=== PATIENT | female | born 1960 | race Caucasian/White ===

== ENCOUNTER → 2016-10-01 | Outpatient (CLI) | payer OTHER ==
[~2016-10-01] MED LIST: ATV/1 PO; CONJ0.453 PO; NARA2.5T2 PO; SERT50TA PO
[2016-10-03 11:08] LABS: QUANTIF TB AG-NIL 0.01 IU/ML; QUANTIFERON NIL 0.02 IU/ML
== END | disposition home or self-care (01) ==
LOC: C.LABSPEC 12:33
PROVIDERS: ATTEND Family Medicine
DX: Z11.1 Encounter for screening for respiratory tuberculosis (principal)

== ENCOUNTER → 2017-02-01 | Outpatient (CLI) | payer OTHER | END | disposition home or self-care (01) | LOC: C.PAPS 09:32 | PROVIDERS: ATTEND Obstetrics & Gynecology | DX: Z01.419 Encounter for gynecological examination (general) (routine) without abnormal findings (principal) ==

== ENCOUNTER → 2017-09-09 | Outpatient (CLI) | payer OTHER ==
--- NOTE | 2017-09-10 14:41 | MAMMOGRAPHY REPORT ---
BILATERAL DIGITAL SCREENING MAMMOGRAM TOMOSYNTHESIS WITH CAD: 09/09/2017 CLINICAL HISTORY: Routine screening. Patient has no complaints. TECHNIQUE: Breast tomosynthesis in addition to standard 2D mammography was performed. Current study was also evaluated with a Computer Aided Detection (CAD) system. COMPARISON: Comparison is made to exams dated: 06/19/2016 mammogram, 06/16/2015 mammogram, 04/20/2014 ma mmogram, 04/09/2013 mammogram - [facility], 08/01/2010 mammogram, and 07/21/2009 abelino mogram. BREAST COMPOSITION: The tissue of both breasts is heterogeneously dense, which may obscure small mas ses. FINDINGS: There is a nodular 8 mm asymmetry seen within the left lateral breast on the cc view, poss ibly projecting superiorly on the MLO view. Additionally, there is a nodular 9 mm asymmetry seen wit hin the right medial breast middle depth on the cc view, not clearly evident on the MLO view. Recomm end spot compression tomosynthesis views and possible breast ultrasound for further evaluation. Remainder of both breasts are stable compared to prior exams, without suspicious masses, calcificatio ns, or areas of architectural distortion noted. IMPRESSION: ACR BI-RADS CATEGORY 0: INCOMPLETE EVALUATION: NEED ADDITIONAL IMAGING EVALUATION Bilateral asymmetries, for which additional imaging evaluation is recommended. The patient will be c alled to schedule an appointment. Approximately 10% of breast cancers are not detected with mammography. A negative mammographic report should not delay biopsy if a clinically suggestive mass is present. Molly Barrett M.D. ah/:09/09/2017 16:18:02 Elevator Repair Mechanic: Syeda GARZA(Jeny)(Nirmal), [facility] letter sent: Addl Imaging 0 BI-RADS Code: ACR BI-RADS Category 0: Incomplete Evaluation: Need Additional Imaging Evaluation
== END | disposition home or self-care (01) ==
LOC: C.MAMM 11:29
PROVIDERS: ATTEND Family Medicine
DX: Z12.31 Encounter for screening mammogram for malignant neoplasm of breast (principal); N64.89 Other specified disorders of breast

== ENCOUNTER → 2017-09-24 | Outpatient (CLI) | payer OTHER ==
--- NOTE | 2017-09-24 12:57 | MAMMOGRAPHY REPORT ---
BILATERAL DIGITAL DIAGNOSTIC MAMMOGRAM TOMOSYNTHESIS AND TARGETED BILATERAL ULTRASOUND: 09/24/2017 CLINICAL HISTORY: 57-year-old woman called back from screening mammography for a nodular asymmetry in the left lateral breast and right medial breast. TECHNIQUE: Spot compression CC and MLO tomosynthesis images of each breast were obtained. COMPARISON: Comparison is made to exams dated: 09/09/2017 mammogram, 06/19/2016 mammogram, 06/16/2015 m ammogram, 04/20/2014 mammogram, 04/09/2013 mammogram - [facility], and 08/01/2010 mamm ogram. BREAST COMPOSITION: There are scattered areas of fibroglandular density in both breasts. FINDINGS: The spot compression tomosynthesis views of the the right breast demonstrate partial effac ement of the nodular asymmetry which is located in the approximate 12:00 to 1:00 middle one third of the breast. There is no focal area of architectural distortion or microcalcification. Further evalu ation with ultrasound was performed. The spot compression views of the left breast demonstrate parti al effacement of the 8 mm nodular asymmetry seen on screening mammography. There is possible persist ent nodularity in the middle one third of the left breast seen on cc tomosynthesis slice 25/62, for w hich further evaluation with ultrasound was performed in the lateral left breast. Targeted ultrasound was performed in both breasts, with particular attention to the lateral left ken st and 12:00 to 1:00, retroareolar and slightly medial right breast. In the left 3:00 axis, 2 cm fro m the nipple, there is an oval parallel circumscribed anechoic benign simple cyst measuring 4.1 x 1.7 mm. There is a grouping of cysts with internal nonvascular debris in the 2:30 left breast, 3 cm fro m the nipple, measuring approximately 5.9 x 2.8 x 10.5 mm. Another similar-appearing possible cluste r of cysts is identified in the 2:00 left breast, 6 cm from the nipple, measuring 9.4 x 3.9 x 7.5 mm. A circumscribed parallel orientated mixed isoechoic and anechoic solid versus cystic mass in the 1: 00 left breast, 5 cm from the nipple measuring 5.4 x 2.8 x 7.7 mm and another small grouping of cysts with hypoechoic, anechoic and isoechoic internal debris in the 12:00 periareolar left breast measuri ng approximately 2.5 x 8.1 mm in conglomerate. No definite suspicious solid masses seen throughout t he left breast on targeted ultrasound. In the right 12:00 periareolar breast there is a mixed isoechoic and anechoic solid versus cystic mas s, similar in appearance to the mass identified in the 1:00 left breast, measuring 4.9 x 2.6 x 5.4 mm . There is an isoechoic solid mass versus conspicuous fat lobule in the 4:00 right breast, 1 cm from the nipple that is likely incidentally identified, measuring 4.3 x 5.0 x 4.0 mm. However given the conspicuous nature and indistinct versus microlobulated margins this lesion warrants definitive killian cterization with an ultrasound-guided core needle biopsy. No other discrete solid or cystic mass is seen in the 12:00, retroareolar, 6:00 or slightly medial right breast on targeted ultrasound. IMPRESSION: ACR BI-RADS CATEGORY 4: SUSPICIOUS, TARGETED ULTRASOUND ACR BI-RADS CATEGORY 4: SUSPICIO US 1. Ultrasound guided core needle biopsy is recommended for an indeterminate 5 mm isoechoic solid mas s versus conspicuous fat lobule in the 4:00 right breast, 1 cm from the nipple. Correlation with pos t procedure mammography is recommended, as it is unclear if this could correlate with the initial nod ular mammographic asymmetry. 2. Pending benign pathology results, recommend follow-up bilateral diagnostic tomosynthesis mammogra ms and repeat targeted ultrasound in each breast to reassess the benign-appearing cyst clusters and s olid versus cystic masses, as described above. These results and recommendations were discussed with the patient at the time of the exam. She tenta tively scheduled the right breast core biopsy and six-month follow-up appointment prior to leaving ou r department. Approximately 10% of breast cancers are not detected with mammography. A negative mammographic report should not delay biopsy if a clinically suggestive mass is present. Estefanía Marie M.D. ay/:09/24/2017 12:40:25 Lining Layer: Michelle Greene, [facility] letter sent: Abnormal 4/5 BI-RADS Code: ACR BI-RADS Category 4: Suspicious Ultrasound BI-RADS: ACR BI-RADS Category 4: Suspici ous
== END | disposition home or self-care (01) ==
LOC: C.MAMM 09:49
PROVIDERS: ATTEND Family Medicine
DX: R92.8 Other abnormal and inconclusive findings on diagnostic imaging of breast (principal); N64.89 Other specified disorders of breast

== ENCOUNTER → 2017-10-08 | Outpatient (CLI) | payer OTHER ==
--- NOTE | 2017-10-08 13:22 | Discharge Instructions ---
Discharge Instructions Procedure Procedure Date: Oct 08, 2017. Reason for visit: Right Mass. Discharge Discharge Date: Oct 08, 2017. Discharge Diagnosis: post right breast ultrasound guided core biopsy Instructions Activity Recommendations: Additional Limitations (see below) Return to School/Work: no limitations Recommended Home Diet: No Limitations Provider Instructions: ACTIVITY RECOMMENDATIONS: * No lifting, pushing, pulling or exercising the affected side for three days. RETURN TO SCHOOL/WORK: * You may return to work/school after the procedure, but do not perform any strenuous activities for 24 to 48 hours. MEDICATIONS: * Tylenol (two 325 mg) every four to six hours if needed for mild pain (if not allergic to Tylenol). DIET: * Resume previous diet. SPECIAL CARE INSTRUCTIONS: * Keep biopsy site dry for 24 hours. May shower after 24 hours, but do not soak (bathe) incision. * May remove Tegaderm (plastic patch) tomorrow AFTER showering. * Leave the steri-strips on for one week. Allow the steri-strips to fall off by themselves. If not off after one week, you may remove them. You may place a Bandaid crosswise over the strips, if desired. * Apply ice 10 minutes on and 10 minutes off as needed. * Wear a bra at bedtime to sleep more comfortably for 2-3 days. * Your referring physician should have the results after approximately 5 to 7 business days. * Call for unusual bleeding, fever, drainage, etc or if you have any questions call [phone] during normal business hours or after hours call Dr Marie, . FOLLOW UP VISIT: Follow-up with Referring Physician as scheduled. Allergies Coded Allergies: No Known Allergies (Unverified , 08/09/15) Nicolasa Talavera Recommendations: Call your doctor if: * Temperature above 101 degrees * Pain not relieved by pain medicine ordered * There is increased drainage or redness from any incision * You have any unanswered questions or concerns. Your Doctors Instructions noted above were prepared by provider Estefanía Marie. Patient Signature Section: Patient Instructions Signature Page Zoe Keane Patient (or Guardian) Signature/Date: I have read and understand the instructions given to me by my caregivers. Caregiver/RN/Doctor Signature/Date: The above-named patient and/or guardian has received patient instructions on this date. + Original Patient Signature Page (only) stays with chart. Please make copy for patient.
--- NOTE | 2017-10-08 15:15 | MAMMOGRAPHY REPORT ---
THIS REPORT HAS BEEN AMENDED. ULTRASOUND GUIDED BIOPSY RIGHT BREAST: 10/08/2017 CLINICAL HISTORY: 57-year-old woman presents for biopsy of an incidentally identified on circumscribe d isoechoic 5 mm mass in the 4:00 right breast. COMPARISON: Comparison is made to exams dated: 09/24/2017 mammogram, 09/24/2017 ultrasound, 09/09/2017 mammogram, 06/19/2016 mammogram, 06/16/2015 mammogram, and 04/20/2014 mammogram - [facility] [place]. PATIENT CONSENT: The procedure, risks and benefits were discussed with the patient and informed conse nt was obtained both verbally and in writing. Specific risks to this procedure include: bleeding, in fection, puncture of adjacent structure, nontarget biopsy, sampling error, pain, metal allergy and me dication reaction. PROCEDURE DESCRIPTION: A time out was performed and the right breast was agreed as the site of biopsy . The skin was prepped and draped in the usual sterile fashion. The non-circumscribed somewhat irregu lar isoechoic 5 mm mass in the 4:00 right breast was chosen as the target for biopsy. Subcutaneous an d intraparenchymal 1% buffered lidocaine, with and without epinephrine, was administered as local ane sthesia. A skin incision was made. Through the incision, 6 samples were taken with a 14 gauge Achiev e biopsy device. A ribbon shaped metallic marker was placed at the biopsy site. Hemostasis was achiev ed after manual compression. The patient tolerated the procedure well and there was no immediate comp lication. The samples were sent to the pathology department in an appropriately labeled container. Postprocedure right CC and ML tomosynthesis images were obtained. There is a new ribbon-shaped biops y marker clip in the 4:00 anterior right breast, at the site of the biopsied isoechoic mass identifie d on ultrasound. The biopsy marker clip does not align with the initial nodular mammographic asymmet ry in question. As per prior recommendations, pending benign pathology results would recommend close follow-up bilateral diagnostic mammograms and possible ultrasound in 6 months to ensure stability. IMPRESSION: ULTRASOUND GUIDED BIOPSY Status post ultrasound guided core biopsy of a 5 mm isoechoic mass in the 4:00 right breast, with bio psy marker placed at the site. Pending benign pathology results, recommend follow-up bilateral diagnostic tomosynthesis mammograms a nd possible ultrasound to ensure stability of other nodular asymmetries in each breast. Estefanía Marie M.D. ay/:10/08/2017 14:57:38 Surface Ship Usw Supervisor: Michelle Greene, [facility] AMENDMENT: 10/16/2017 Estefanía Marie M.D. Pathology results from the ultrasound-guided core biopsy of an isoechoic angular mass in the 4:00 rig ht breast yielded fibrocystic change. No tumor seen. Pathology results are concordant with the imag ing appearance. As per prior diagnostic mammogram and ultrasound recommendations, a six-month follow -up is recommended in both breasts, to ensure stability of bilateral asymmetries, which did not corre late with the biopsied lesion in the right breast.
--- NOTE | 2017-10-08 15:16 | MAMMOGRAPHY REPORT ---
UNILATERAL RIGHT DIGITAL DIAGNOSTIC MAMMOGRAM TOMOSYNTHESIS: 10/08/2017 CLINICAL HISTORY: Status post ultrasound guided core biopsy of an isoechoic 4 mm mass in the 4:00 rig ht breast. Please refer to the report from right breast ultrasound guided core biopsy performed at the same time for full detail. IMPRESSION: POST PROCEDURE IMAGING FOR MARKER PLACEMENT Please refer to the report from right breast ultrasound guided core biopsy performed at the same time for full detail. Approximately 10% of breast cancers are not detected with mammography. A negative mammographic report should not delay biopsy if a clinically suggestive mass is present. Estefanía Marie M.D. ay/:10/08/2017 13:21:06 Urban Planning Professor: Michelle Greene, [facility] BI-RADS Code: Post Procedure Imaging For Marker Placement
== END | disposition home or self-care (01) ==
LOC: C.MAMM 12:42
PROVIDERS: ATTEND Family Medicine
DX: N63.10 Unspecified lump in the right breast, unspecified quadrant (principal)

== ENCOUNTER 2023-07-08 21:10 | Inpatient (IN) ==
[2023-07-08 22:19] LABS: Basophils # (auto) 0.01 K/uL (0.00-0.20); Basophils % (auto) 0.2 %; Eosinophils # (auto) 0.17 K/uL (0.00-0.50); Eosinophils % (auto) 2.7 %; Hematocrit (blood only) 45.2 % (37.0-47.0); Hemoglobin 15.2 g/dl (12.0-16.0); Immature Granulocytes # (auto) 0.02 K/uL (0.01-0.20); Immature Granulocytes % (auto) 0.3 %; Lymphocytes # (auto) 1.33 K/uL (1.20-3.40); Mean Corpuscular Hgb Conc 33.6 g/dL (32.0-36.0); Mean Corpuscular Volume 92.2 fL (80.0-100.0); Mean Platelet Volume 11.2 fL (9.4-12.4); Monocytes # (auto) 0.46 K/uL (0.11-0.59); Monocytes % (auto) 7.3 %; Neutrophils # (auto) 4.35 K/uL (1.40-6.50); Neutrophils % (auto) 68.5 %; Platelet Count 227 K/uL (130-400); RDW Coefficient of Variation 13.6 % (11.5-14.5); RDW Standard Deviation 46.2 fL (36.4-46.3); White Blood Count 6.34 K/ul (4.8-10.8)
[2023-07-08 22:40] LABS: Albumin Level 4.4 gm/dl (3.4-5.0); Bilirubin,Total 0.4 mg/dl (0.2-1.0)
[2023-07-08 22:46] LABS: Albumin Globulin Ratio 1.7 (0.9-2); BUN Creatinine Ratio 21.1 (10-20); Creatinine Clr Calc Pharmacy 68.5 ml/min; Est GFR (African American) 74.9 ml/min; Est GFR (Non-African American) 64.6 ml/min; Globulin 2.6 gm/dl (2.5-4.0)
[2023-07-08] MEDS ORDERED: Heparin IV Adult Wt-Based Standard w/ INITIAL Bolus Protocol IV STA (23:39)
[2023-07-08] MEDS ORDERED: NITROGLYCERIN SL 0.4 MG/TAB TAB SL STA (23:39)
[2023-07-08] MEDS ORDERED: HEPARIN SODIUM/DEXTROSE 25,000 UNITS/500 ML BAG IV SCH (23:45)
[2023-07-08] MEDS ORDERED: HEPARIN SOD (PORCINE) 1000 UNIT/ML IV ONE ×2 (23:45→23:55)
[2023-07-09 00:15] LABS: Partial Thromboplastin Ratio 0.8; Partial Thromboplastin Time 22.7 Seconds (21.0-31.0)
[2023-07-09] MEDS ORDERED: ACETAMINOPHEN 1,000 MG/100 ML VIAL IV STA (02:16)
[2023-07-09] MEDS ORDERED: LABETALOL HCL IV 5 MG/ML 20ML IV STA (02:19)
[2023-07-09] MEDS ORDERED: FAMOTIDINE 20MG IV PUSH 20 MG/5 ML SYR IV STA (02:22)
--- NOTE | 2023-07-09 03:25 | History & Physical Report ---
Date of Service July 09, 2023 Assessment & Plan (1) NSTEMI (non-ST elevated myocardial infarction): Plan: 63-year-old female with past medical significant for migraines presents with chest pain and elevated blood pressure and found to have non-ST elevated PR Non-ST elevated PR Chest pain going on and off for last 2 weeks Initial troponin 1225 and repeat is 1540 Started IV heparin and aspirin and statin Lopressor 12.5 p.o. twice daily Nitropaste Follow serial cardiac enzymes and echocardiogram n.p.o. Monitor in telemetry Cardiology consult Elevated blood pressure Placed on Nitropaste Lopressor 12.5 po twice daily Will closely monitor Migraines IV Tylenol as needed for now DVT prophylaxis On IV heparin Disposition Telemetry floor Full code History of Present Illness Chief Complaint: Chest pain Primary Care Provider: Colin Quezada DO 63-year-old female with past medical significant for migraines presents with chest pain and elevated blood pressure. Patient states since last 2 weeks she is on and off lower chest and epigastric pain comes on its own. Was feeling fatigue and also dizzy. Yesterday pain was more constant feeling tight in the chest and also tenderness in the epigastric region which prompted her to come to the ER. And there when she came her systolic blood pressure was in 190s and her symptoms and blood pressure improved with nitro. Currently resting comfortably and hemodynamically stable. Denies any shortness of breath. Says she thinks she gets migraine headaches and she takes naratriptan with ibuprofen. Cough. No fevers. No nausea. No sweating. Normal bladder and bowel movements. Denies any blood in the stools or black stools. Denies hematuria. Past medical history as mentioned above Past surgical history. Left knee arthroscopy. Bilateral total. Knee arthroplasty Social history. No smoking. Alcohol social drinking. No drug use. Family history. Mother had coronary disease. Thyroid disease. Father had liver cancer. Sister has cancer. Allergies Allergy/AdvReac Type Severity Reaction Status Date / Time Penicillins Allergy Unknown Verified 07/08/23 23:34 Home Medications Medication Instructions Recorded Confirmed Type betamethasone valerate 0.12 % 1 applic topical DAILY 07/08/23 07/08/23 History topical foam celecoxib 200 mg capsule 200 mg PO QAM 07/08/23 07/08/23 History clobetasol 0.05 % scalp solution 1 applic topical BID 07/08/23 07/08/23 History conj estrogen-medroxyprogesterone 1 tab PO DAILY 07/08/23 07/08/23 History 0.3 mg-1.5 mg tablet (Prempro) naratriptan 2.5 mg tablet 2.5 mg PO DAILY PRN Headache 07/08/23 07/08/23 History olopatadine 0.1 % eye drops 1 drp OPB BID 07/08/23 07/08/23 History Past Med/Surg History Medical History Deep vein thrombosis (DVT) lower extremity 2009 after knee surgery Depression Migraines Surgical History S/P colonoscopy H/O induced surgically S/P knee surgery S/P breast biopsy percutaneous needle core- right breast, benign 2017 Family History Father Liver cancer Family/Other Migraine headache Sister Thyroid disease Uterine cancer Mother Thyroid disease Denies family history of Ovarian cancer Breast cancer Colorectal cancer Social History Smoking Status: Never smoker Do You Dip or Chew Tobacco: No; Hx Alcohol Use: No Hx Substance Use: No Preferred Language: Nepali Buckle Sewer Required: No Beliefs That Will Affect Care: None marital status: Current Living Situation: Alone current occupational status: employed current occupation: [employer] Other Information That Helps Us Care for You: No Feels Safe at Home: Yes Safety Concerns: Feels Safe At This Time Assistive Devices: None Review of Systems Review of Systems: All systems reviewed & are unremarkable except as noted in HPI & below Physical Exam Physical Exam: General- Not in distress Head- atraumatic Eyes- PERRL. ENT- oropharynx clear Neck- supple, no JVD. Lungs- clear to auscultation, No wheezing or crackles. Heart- regular rhythm; no murmur, no gallop. Abdomen- normal bowel sounds, soft, nontender, no distension. Extremities- no pretibial edema, no erythema. Neuro- alert, oriented x 3; PERRL, no facial palsy; no dysarthria; moves extremities. Skin- warm & dry Results & Data Results & Data Vital Signs (Past 12 Hours) Vital Signs Pulse Pulse Resp BP BP Pulse Ox O2 Del Method 07/09/23 02:45 71 162/105 H 07/09/23 01:00 78 18 184/97 H 96 Room Air 07/09/23 00:00 90 20 157/87 H 96 07/08/23 23:50 84 23 98 07/08/23 23:40 83 20 07/08/23 23:30 187/114 H 07/08/23 23:30 86 22 100 07/08/23 23:23 182/115 H 07/08/23 23:23 81 19 100 07/08/23 23:20 121 H 19 99 07/08/23 23:10 87 13 100 07/08/23 23:04 86 20 99 07/08/23 23:04 88 16 99 Room Air 07/08/23 23:03 196/114 H 07/08/23 23:00 88 18 196/114 H 100 Room Air 07/08/23 21:18 90 18 181/108 H 97 Room Air Diagnostic Findings Laboratory Results WBC 7.23 K/ul (4.8-10.8) 07/09/23 06:23 RBC 4.73 M/uL (4.20-5.40) 07/09/23 06:23 Hgb 14.8 g/dl (12.0-16.0) 07/09/23 06:23 Hct 42.5 % (37.0-47.0) 07/09/23 06:23 MCV 89.9 fL (80.0-100.0) 07/09/23 06:23 MCH 31.3 pg (25.0-34.0) 07/09/23 06:23 MCHC 34.8 g/dL (32.0-36.0) 07/09/23 06:23 RDW Std Deviation 44.0 fL (36.4-46.3) 07/09/23 06:23 RDW Coeff of Ángel 13.3 % (11.5-14.5) 07/09/23 06:23 Plt Count 238 K/uL (130-400) 07/09/23 06:23 MPV 10.4 fL (9.4-12.4) 07/09/23 06:23 Immature Gran % (Auto) 0.3 % 07/09/23 06: Neut % (Auto) 75.8 % 07/09/23 06:23 Lymph % (Auto) 17.4 % 07/09/23 06:23 [place] % (Auto) 5.7 % 07/09/23 06:23 Eos % (Auto) 0.8 % 07/09/23 06:23 Baso % (Auto) 0.0 % 07/09/23 06: Neut # (Auto) 5.48 K/uL (1.40-6.50) 07/09/23 06:23 Lymph # (Auto) 1.26 K/uL (1.20-3.40) 07/09/23 06:23 [place] # (Auto) 0.41 K/uL (0.11-0.59) 07/09/23 06:23 Eos # (Auto) 0.06 K/uL (0.00-0.50) 07/09/23 06:23 Baso # (Auto) 0.00 K/uL (0.00-0.20) 07/09/23 06:23 Immature Gran # (Auto) 0.02 K/uL (0.01-0.20) 07/09/23 06:23 APTT 22.7 Seconds (21.0-31.0) 07/08/23 21: PTT Ratio 0.8 07/08/23 21:28 Sodium 142 mmol/L (136-145) 07/09/23 06:23 Potassium 4.1 mmol/L (3.5-5.1) 07/09/23 06:23 Chloride 109 mmol/L (98-107) H 07/09/23 06:23 Carbon Dioxide 22 mmol/L (21-32) 07/09/23 06:23 Anion Gap 11 (3-11) 07/09/23 06:23 BUN 13 mg/dl (6-23) 07/09/23 06:23 Creatinine 0.77 mg/dl (0.6-1.2) 07/09/23 06:23 Est Cr Clr Drug Dosing 84.3 ml/min 07/09/23 06:23 Est GFR ( Amer) 96.6 ml/min 07/09/23 06:23 Est GFR (Non-Af Amer) 83.3 ml/min 07/09/23 06:23 BUN/Creatinine Ratio 16.9 (10-20) 07/09/23 06:23 Glucose 110 mg/dl (70-99(Fasting)) H 07/09/23 06:23 Calcium 8.7 mg/dl (8.6-10.3) 07/09/23 06:23 Magnesium 2.1 mg/dl (1.7-2.4) 07/09/23 06:23 Total Bilirubin 0.4 mg/dl (0.2-1.0) 07/08/23 21:29 AST 28 U/L (13-39) 07/08/23 21:29 ALT 27 U/L (7-52) 07/08/23 21:29 Alkaline Phosphatase 54 U/L (34-104) 07/08/23 21:29 Troponin I High Sens 3841.6 pg/ml (0-14) H* D 07/09/23 06:23 Total Protein 7.0 gm/dl (6.0-8.3) 07/08/23 21:29 Albumin 4.4 gm/dl (3.4-5.0) 07/08/23 21:29 Globulin 2.6 gm/dl (2.5-4.0) 07/08/23 21:29 Albumin/Globulin Ratio 1.7 (0.9-2) 07/08/23 21:29 Lipase 24 U/L (11-82) 07/08/23 21:29 Impressions Chest X-Ray 07/08/23 21:22 XR chest 1V portable CLINICAL HISTORY: Chest pain, nonspecific. COMPARISON STUDY: No previous studies for comparison. FINDINGS: Lung volumes are normal. Lungs are clear. There is no pneumothorax or pleural effusion. Cardiac size is normal. Mediastinal contours are normal. There is no evidence for pulmonary edema. IMPRESSION: No acute cardiopulmonary findings. ACT 112: Negative or not required by law. Electronically signed by: Genaro Dueñas M.D. 07/09/2023 6:58 AM ECG Additional Comments: ECG. Normal sinus rhythm with rate of 89. No acute ST elevation seen
[2023-07-09] MEDS ORDERED: ASPIRIN CHEW 324 MG PO STA (03:29)
[2023-07-09] MEDS: NITROGLYCERIN 2% OINTMENT 30GM TUBE EXT SCH ×4 (04:16→21:33)
[2023-07-09] MEDS ORDERED: NITROGLYCERIN SL 0.4 MG/TAB TAB SL PRN (04:54)
[2023-07-09] MEDS ORDERED: POLYETHYLENE (MIRALAX) 17 GM PACK PO PRN (04:54)
[2023-07-09 06:43] LABS: Eosinophils # (auto) 0.06 K/uL (0.00-0.50); Eosinophils % (auto) 0.8 %; Hematocrit (blood only) 42.5 % (37.0-47.0); Hemoglobin 14.8 g/dl (12.0-16.0); Immature Granulocytes # (auto) 0.02 K/uL (0.01-0.20); Immature Granulocytes % (auto) 0.3 %; Lymphocytes # (auto) 1.26 K/uL (1.20-3.40); Lymphocytes % (auto) 17.4 %; Mean Corpuscular Hemoglobin 31.3 pg (25.0-34.0); Mean Corpuscular Hgb Conc 34.8 g/dL (32.0-36.0); Mean Corpuscular Volume 89.9 fL (80.0-100.0); Mean Platelet Volume 10.4 fL (9.4-12.4); Monocytes # (auto) 0.41 K/uL (0.11-0.59); Monocytes % (auto) 5.7 %; Neutrophils # (auto) 5.48 K/uL (1.40-6.50); Neutrophils % (auto) 75.8 %; Platelet Count 238 K/uL (130-400); RDW Coefficient of Variation 13.3 % (11.5-14.5); Red Blood Count 4.73 M/uL (4.20-5.40); White Blood Count 7.23 K/ul (4.8-10.8)
--- NOTE | 2023-07-09 06:59 | XRay Report ---
XR chest 1V portable CLINICAL HISTORY: Chest pain, nonspecific. COMPARISON STUDY: No previous studies for comparison. FINDINGS: Lung volumes are normal. Lungs are clear. There is no pneumothorax or pleural effusion. Car diac size is normal. Mediastinal contours are normal. There is no evidence for pulmonary edema. IMPRESSION: No acute cardiopulmonary findings. ACT 112: Negative or not required by law. Electronically signed by: Genaro Dueñas M.D. 07/09/2023 6:58 AM
[2023-07-09 07:00] LABS: BUN Creatinine Ratio 16.9 (10-20); Calcium 8.7 mg/dl (8.6-10.3); Creatinine Clr Calc Pharmacy 84.3 ml/min; Est GFR (African American) 96.6 ml/min; Est GFR (Non-African American) 83.3 ml/min; Magnesium 2.1 mg/dl (1.7-2.4); Potassium 4.1 mmol/L (3.5-5.1)
[2023-07-09 07:28] LABS: Partial Thromboplastin Ratio 2.1
--- NOTE | 2023-07-09 07:53 | Emergency Department Note ---
Impression & Plan Acute non-ST elevation myocardial infarction (NSTEMI) Admit to the [facility] ED Provider Note NAME: KAHLIL BRICENO AGE: 63 SEX: Female INFORMANT: Patient and her son ED PROVIDER(S): Carmelina Escobar DO CHIEF COMPLAINT: Epigastric discomfort and chest pressure PLAN: Disposition: Admit to the [facility] MEDICAL DECISION MAKING: This is a 63-year-old female patient who presents to the emergency department with intermittent epigastric and chest discomfort over the past couple of days. The discomfort became more intense over the past 24 hours. EKG was unremarkable but the patient had an elevated troponin. Repeat troponin was even higher(>1500.) Patient's chest discomfort was relieved with sublingual nitroglycerin. Patient has a strong family history of cardiac disease. Her mother and grandmother both had heart disease and hypertension. Patient was treated with oral aspirin and bolused with IV heparin and placed on a heparin drip. Blood pressure came down nicely after the sublingual nitro. She remained hemodynamically stable. I discussed the case with the [facility]. 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 Vital Signs: reviewed and remarkable for hypertension Additional History obtained from: The patient's son who is at the bedside Chronic Medical/Social Conditions affecting care: Untreated hypertension Differential Diagnosis: Hypertensive crisis; GERD; STEMI; NSTEMI; costochondritis Diagnostics, independently interpreted by me: ECG: Normal sinus rhythm at a rate of [address] segment elevation or signs of ischemia. There is no ectopy. Cardiac Monitoring: Normal sinus rhythm at a rate of 84 Imaging studies: Portable chest x-ray: No acute cardiomegaly or pulmonary infiltrates or opacities as per my independent interpretation HPI: 63 year old Female arrives for evaluation of epigastric pain and chest pressure. Patient has been having intermittent episodes of chest discomfort, shortness of breath and epigastric pain over the past 2 weeks. Her symptoms became more intense over the past 24 hours. Patient has a history of intermittent hypertension which has been untreated. Patient states that her mother and grandmother both have a history of cardiac disease and hypertension. PAST MEDICAL HISTORY: See Below, arthritis, the patient takes Prempro SOCIAL HISTORY: See Below, HOME MEDICATIONS: See list ALLERGIES: Penicillin VITALS: See Below PHYSICAL EXAMINATION: HEENT: Head - normocephalic and atraumatic. Pupils are equal, round, and reactive to light. Extraocular eye muscles are intact, and sclera are anicteric. Nose - moist nasal mucosa without discharge. Mouth - moist buccal mucosa. Oropharynx is nonerythematous and there is no tonsillar exudate or edema noted. Neck: Supple; no JVD, nuchal rigidity, cervical lymphadenopathy, or auscultated bruits. Heart: Regular rate and rhythm. There is a normal S1 and S2 with no murmurs, clicks, or gallops appreciated. Lungs: Clear to auscultation bilaterally with no wheezes, rales, or rhonchi. Abdomen: Soft, completely nontender, nondistended, with good bowel sounds. There are no palpable pulsatile masses or hepatosplenomegaly. There is no guarding, rigidity, or rebound noted. Extremities: No evidence of cyanosis, clubbing, or edema. There are easily palpable peripheral pulses. Skin: warm and dry with good turgor and no rashes. CRITICAL CARE: I have personally spent greater than 30 minutes of critical care time in the direct management of this patient. This includes bedside care, interpretation of diagnostic studies, and testing, discussion with consultants, patient, and family members, and other required patient management activities. This 30 minutes is in excess of all separately billable procedures. 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 A complete history and physical was performed. An order was placed for continuous cardiac monitoring. The patient was in a normal sinus rhythm at a rate of 84. A portable chest x- ray was performed. I discussed the case with the patient's daughter and son-in-law on the phone. I reviewed results of laboratory studies and x-ray with the patient and her son. I explained that she would require admission to the hospital. Past Med/Surg History Medical History Deep vein thrombosis (DVT) lower extremity 2009 after knee surgery Depression Migraines Surgical History S/P colonoscopy H/O induced surgically S/P knee surgery S/P breast biopsy percutaneous needle core- right breast, benign 2018 Family History Father Liver cancer Family/Other Migraine headache Sister Thyroid disease Uterine cancer Mother Thyroid disease Denies family history of Ovarian cancer Breast cancer Colorectal cancer Social History Smoking Status: Never smoker Do You Dip or Chew Tobacco: No; Hx Alcohol Use: No Hx Substance Use: No Preferred Language: Estonian Communication Ability: Effective 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: No Beliefs That Will Affect Care: None marital status: Current Living Situation: Alone current occupational status: employed current occupation: [employer] Other Information That Helps Us Care for You: No Feels Safe at Home: Yes Safety Concerns: Feels Safe At This Time Assistive Devices: None Allergies Allergies Allergy/AdvReac Type Severity Reaction Status Date / Time Penicillins Allergy Unknown Verified 07/08/23 23:34 Home Meds Home Medications Medication Instructions Recorded Confirmed betamethasone valerate 0.12 % 1 applic topical DAILY 07/08/23 07/08/23 topical foam celecoxib 200 mg capsule 200 mg PO QAM 07/08/23 07/08/23 clobetasol 0.05 % scalp solution 1 applic topical BID 07/08/23 07/08/23 conj estrogen-medroxyprogesterone 1 tab PO DAILY 07/08/23 07/08/23 0.3 mg-1.5 mg tablet (Prempro) naratriptan 2.5 mg tablet 2.5 mg PO DAILY PRN Headache 07/08/23 07/08/23 olopatadine 0.1 % eye drops 1 drp OPB BID 07/08/23 07/08/23 Results & Data (ED) Vital Signs Vital Signs - 24 hr 07/08/23 21:18 07/08/23 23:00 07/08/23 23:03 Pulse Rate 90 Pulse Rate [Apical] 88 Pulse Rate from SpO2 Sensor Pulse Rhythm Regular Pulse Rhythm [Apical] Regular Pulse Strength [Apical] Normal Respiratory Rate 18 18 Respiratory Effort / Characteristics Non-Labored Non-Labored Spontaneous Respiratory Depth Normal Normal Respiratory Pattern Regular Blood Pressure 181/108 H 196/114 H Blood Pressure [Right Arm] 196/114 H Blood Pressure Mean 132 154 Blood Pressure Mean [Right Arm] 141 Blood Pressure Position [Right Arm] Pulse Oximetry 97 100 Oxygen Delivery Method Room Air Room Air Sepsis Recent Fever Within 48 Hours No Sepsis New/Unexplained Change in Mental Status N/A Sepsis Action Taken by Nursing No Action Required 07/08/23 23:04 07/08/23 23:04 07/08/23 23:10 Pulse Rate 88 86 87 Pulse Rate [Apical] Pulse Rate from SpO2 Sensor 87 87 Pulse Rhythm Regular Pulse Rhythm [Apical] Pulse Strength [Apical] Respiratory Rate 16 20 13 Respiratory Effort / Characteristics Respiratory Depth Respiratory Pattern Blood Pressure Blood Pressure [Right Arm] Blood Pressure Mean Blood Pressure Mean [Right Arm] Blood Pressure Position [Right Arm] Pulse Oximetry 99 99 100 Oxygen Delivery Method Room Air Sepsis Recent Fever Within 48 Hours Sepsis New/Unexplained Change in Mental Status Sepsis Action Taken by Nursing 07/08/23 23:20 07/08/23 23:23 07/08/23 23:23 Pulse Rate 121 H 81 Pulse Rate [Apical] Pulse Rate from SpO2 Sensor 85 81 Pulse Rhythm Pulse Rhythm [Apical] Pulse Strength [Apical] Respiratory Rate 19 19 Respiratory Effort / Characteristics Respiratory Depth Respiratory Pattern Blood Pressure 182/115 H Blood Pressure [Right Arm] Blood Pressure Mean 141 Blood Pressure Mean [Right Arm] Blood Pressure Position [Right Arm] Pulse Oximetry 99 100 Oxygen Delivery Method Sepsis Recent Fever Within 48 Hours Sepsis New/Unexplained Change in Mental Status Sepsis Action Taken by Nursing 07/08/23 23:30 07/08/23 23:30 07/08/23 23:40 Pulse Rate 86 83 Pulse Rate [Apical] Pulse Rate from SpO2 Sensor 87 Pulse Rhythm Pulse Rhythm [Apical] Pulse Strength [Apical] Respiratory Rate 22 20 Respiratory Effort / Characteristics Respiratory Depth Respiratory Pattern Blood Pressure 187/114 H Blood Pressure [Right Arm] Blood Pressure Mean 162 Blood Pressure Mean [Right Arm] Blood Pressure Position [Right Arm] Pulse Oximetry 100 Oxygen Delivery Method Sepsis Recent Fever Within 48 Hours Sepsis New/Unexplained Change in Mental Status Sepsis Action Taken by Nursing 07/08/23 23:50 07/09/23 00:00 07/09/23 00:00 Pulse Rate 84 90 Pulse Rate [Apical] Pulse Rate from SpO2 Sensor 81 89 Pulse Rhythm Pulse Rhythm [Apical] Pulse Strength [Apical] Respiratory Rate 23 20 Respiratory Effort / Characteristics Respiratory Depth Respiratory Pattern Blood Pressure 157/87 H 157/87 H Blood Pressure [Right Arm] Blood Pressure Mean 110 105 Blood Pressure Mean [Right Arm] Blood Pressure Position [Right Arm] Pulse Oximetry 98 96 Oxygen Delivery Method Sepsis Recent Fever Within 48 Hours Sepsis New/Unexplained Change in Mental Status Sepsis Action Taken by Nursing 07/09/23 00:10 07/09/23 00:20 07/09/23 00:30 Pulse Rate 72 76 80 Pulse Rate [Apical] Pulse Rate from SpO2 Sensor 73 76 79 Pulse Rhythm Pulse Rhythm [Apical] Pulse Strength [Apical] Respiratory Rate 17 17 19 Respiratory Effort / Characteristics Respiratory Depth Respiratory Pattern Blood Pressure Blood Pressure [Right Arm] Blood Pressure Mean Blood Pressure Mean [Right Arm] Blood Pressure Position [Right Arm] Pulse Oximetry 96 96 96 Oxygen Delivery Method Sepsis Recent Fever Within 48 Hours Sepsis New/Unexplained Change in Mental Status Sepsis Action Taken by Nursing 07/09/23 00:30 07/09/23 00:40 07/09/23 00:50 Pulse Rate 76 86 Pulse Rate [Apical] Pulse Rate from SpO2 Sensor 76 84 Pulse Rhythm Pulse Rhythm [Apical] Pulse Strength [Apical] Respiratory Rate 22 17 Respiratory Effort / Characteristics Respiratory Depth Respiratory Pattern Blood Pressure 126/99 Blood Pressure [Right Arm] Blood Pressure Mean 102 Blood Pressure Mean [Right Arm] Blood Pressure Position [Right Arm] Pulse Oximetry 96 96 Oxygen Delivery Method Sepsis Recent Fever Within 48 Hours Sepsis New/Unexplained Change in Mental Status Sepsis Action Taken by Nursing 07/09/23 01:00 07/09/23 01:00 07/09/23 01:00 Pulse Rate 78 Pulse Rate [Apical] 78 Pulse Rate from SpO2 Sensor 79 Pulse Rhythm Pulse Rhythm [Apical] Regular Pulse Strength [Apical] Normal Respiratory Rate 18 22 Respiratory Effort / Characteristics Non-Labored Spontaneous Respiratory Depth Normal Respiratory Pattern Regular Blood Pressure 172/100 H Blood Pressure [Right Arm] 184/97 H Blood Pressure Mean 113 Blood Pressure Mean [Right Arm] 126 Blood Pressure Position [Right Arm] Lying Pulse Oximetry 96 95 Oxygen Delivery Method Room Air Sepsis Recent Fever Within 48 Hours Sepsis New/Unexplained Change in Mental Status Sepsis Action Taken by Nursing 07/09/23 01:10 07/09/23 01:20 07/09/23 01:24 Pulse Rate 75 78 88 Pulse Rate [Apical] Pulse Rate from SpO2 Sensor 77 77 78 Pulse Rhythm Pulse Rhythm [Apical] Pulse Strength [Apical] Respiratory Rate 17 21 15 Respiratory Effort / Characteristics Respiratory Depth Respiratory Pattern Blood Pressure Blood Pressure [Right Arm] Blood Pressure Mean Blood Pressure Mean [Right Arm] Blood Pressure Position [Right Arm] Pulse Oximetry 98 97 96 Oxygen Delivery Method Sepsis Recent Fever Within 48 Hours Sepsis New/Unexplained Change in Mental Status Sepsis Action Taken by Nursing 07/09/23 01:31 07/09/23 01:32 07/09/23 01:40 Pulse Rate Pulse Rate [Apical] Pulse Rate from SpO2 Sensor 76 81 Pulse Rhythm Pulse Rhythm [Apical] Pulse Strength [Apical] Respiratory Rate Respiratory Effort / Characteristics Respiratory Depth Respiratory Pattern Blood Pressure 184/97 H Blood Pressure [Right Arm] Blood Pressure Mean 145 Blood Pressure Mean [Right Arm] Blood Pressure Position [Right Arm] Pulse Oximetry 96 96 Oxygen Delivery Method Sepsis Recent Fever Within 48 Hours Sepsis New/Unexplained Change in Mental Status Sepsis Action Taken by Nursing 07/09/23 01:50 07/09/23 02:00 07/09/23 02:00 Pulse Rate Pulse Rate [Apical] Pulse Rate from SpO2 Sensor 75 86 Pulse Rhythm Pulse Rhythm [Apical] Pulse Strength [Apical] Respiratory Rate Respiratory Effort / Characteristics Respiratory Depth Respiratory Pattern Blood Pressure 162/105 H Blood Pressure [Right Arm] Blood Pressure Mean 120 Blood Pressure Mean [Right Arm] Blood Pressure Position [Right Arm] Pulse Oximetry 95 95 Oxygen Delivery Method Sepsis Recent Fever Within 48 Hours Sepsis New/Unexplained Change in Mental Status Sepsis Action Taken by Nursing 07/09/23 02:10 07/09/23 02:20 07/09/23 02:30 Pulse Rate 82 Pulse Rate [Apical] Pulse Rate from SpO2 Sensor 83 81 82 Pulse Rhythm Pulse Rhythm [Apical] Pulse Strength [Apical] Respiratory Rate 13 Respiratory Effort / Characteristics Respiratory Depth Respiratory Pattern Blood Pressure Blood Pressure [Right Arm] Blood Pressure Mean Blood Pressure Mean [Right Arm] Blood Pressure Position [Right Arm] Pulse Oximetry 97 98 98 Oxygen Delivery Method Sepsis Recent Fever Within 48 Hours Sepsis New/Unexplained Change in Mental Status Sepsis Action Taken by Nursing 07/09/23 02:40 07/09/23 02:45 07/09/23 02:49 Pulse Rate 72 71 74 Pulse Rate [Apical] Pulse Rate from SpO2 Sensor 73 74 Pulse Rhythm Pulse Rhythm [Apical] Pulse Strength [Apical] Respiratory Rate 17 12 Respiratory Effort / Characteristics Respiratory Depth Respiratory Pattern Blood Pressure 162/105 H Blood Pressure [Right Arm] Blood Pressure Mean Blood Pressure Mean [Right Arm] Blood Pressure Position [Right Arm] Pulse Oximetry 97 97 Oxygen Delivery Method Sepsis Recent Fever Within 48 Hours Sepsis New/Unexplained Change in Mental Status Sepsis Action Taken by Nursing 07/09/23 02:49 07/09/23 02:50 07/09/23 03:00 Pulse Rate 69 70 Pulse Rate [Apical] Pulse Rate from SpO2 Sensor 71 Pulse Rhythm Pulse Rhythm [Apical] Pulse Strength [Apical] Respiratory Rate 18 Respiratory Effort / Characteristics Respiratory Depth Respiratory Pattern Blood Pressure 164/108 H 166/105 H Blood Pressure [Right Arm] Blood Pressure Mean 134 Blood Pressure Mean [Right Arm] Blood Pressure Position [Right Arm] Pulse Oximetry 96 Oxygen Delivery Method Sepsis Recent Fever Within 48 Hours Sepsis New/Unexplained Change in Mental Status Sepsis Action Taken by Nursing 07/09/23 03:00 07/09/23 03:06 07/09/23 03:08 Pulse Rate 72 70 80 Pulse Rate [Apical] Pulse Rate from SpO2 Sensor 73 79 Pulse Rhythm Pulse Rhythm [Apical] Pulse Strength [Apical] Respiratory Rate 18 16 Respiratory Effort / Characteristics Respiratory Depth Respiratory Pattern Blood Pressure Blood Pressure [Right Arm] Blood Pressure Mean Blood Pressure Mean [Right Arm] Blood Pressure Position [Right Arm] Pulse Oximetry 96 96 Oxygen Delivery Method Sepsis Recent Fever Within 48 Hours Sepsis New/Unexplained Change in Mental Status Sepsis Action Taken by Nursing Laboratory Data 07/10/23 07:32 07/10/23 05:40 Lab Results 07/08/23 07/08/23 07/08/23 Range/Units 21:28 21:29 23:48 WBC 6.34 (4.8-10.8) K/ul RBC 4.90 (4.20-5.40) M/uL Hgb 15.2 (12.0-16.0) g/dl Hct 45.2 (37.0-47.0) % MCV 92.2 (80.0-100.0) fL MCH 31.0 (25.0-34.0) pg MCHC 33.6 (32.0-36.0) g/dL RDW Std Deviation 46.2 (36.4-46.3) fL RDW Coeff of Ángel 13.6 (11.5-14.5) % Plt Count 227 (130-400) K/uL MPV 11.2 (9.4-12.4) fL Immature Gran % (Auto) 0.3 % Neut % (Auto) 68.5 % Lymph % (Auto) 21.0 % [place] % (Auto) 7.3 % Eos % (Auto) 2.7 % Baso % (Auto) 0.2 % Neut # (Auto) 4.35 (1.40-6.50) K/uL Lymph # (Auto) 1.33 (1.20-3.40) K/uL [place] # (Auto) 0.46 (0.11-0.59) K/uL Eos # (Auto) 0.17 (0.00-0.50) K/uL Baso # (Auto) 0.01 (0.00-0.20) K/uL Immature Gran # (Auto) 0.02 (0.01-0.20) K/uL APTT 22.7 (21.0-31.0) Seconds PTT Ratio 0.8 Sodium 140 (136-145) mmol/L Potassium 4.0 (3.5-5.1) mmol/L Chloride 108 H (98-107) mmol/L Carbon Dioxide 22 (21-32) mmol/L Anion Gap 10 (3-11) BUN 20 (6-23) mg/dl Creatinine 0.95 (0.6-1.2) mg/dl Est Cr Clr Drug Dosing 68.5 ml/min Est GFR ( Amer) 74.9 ml/min Est GFR (Non-Af Amer) 64.6 ml/min BUN/Creatinine Ratio 21.1 H (10-20) Glucose 97 (70-99(Fasting)) mg/dl Calcium 9.0 (8.6-10.3) mg/dl Total Bilirubin 0.4 (0.2-1.0) mg/dl AST 28 (13-39) U/L ALT 27 (7-52) U/L Alkaline Phosphatase 54 (34-104) U/L Troponin I High Sens 1225.0 H* 1540.5 H* D (0-14) pg/ml Total Protein 7.0 (6.0-8.3) gm/dl Albumin 4.4 (3.4-5.0) gm/dl Globulin 2.6 (2.5-4.0) gm/dl Albumin/Globulin Ratio 1.7 (0.9-2) Lipase 24 (11-82) U/L Administered Medications Aspirin (Aspirin 81 Mg Ectab) 81 mg PO [facility] Stop: 08/08/23 08:59 Last Admin: 07/10/23 09:43 Dose: 81 mg Documented By: Admin: 07/09/23 10:30 Dose: 81 mg Documented By: SOFIE Atorvastatin Calcium (Atorvastatin 40 Mg Tab) 80 mg PO QAM [facility] Stop: 08/08/23 08:59 Last Admin: 07/10/23 09:43 Dose: 80 mg Documented By: Admin: 07/09/23 11:01 Dose: 80 mg Documented By: SOFIE Acetaminophen (Ofirmev) 1,000 mg in 100 mls @ 400 mls/hr IV Q8H PRN PRN Reason: Pain or Fever Stop: 07/12/23 04:53 Last Infusion: 07/10/23 06:27 Dose: Infused [place] [facility] [place]: 07/10/23 05:37 Dose: 400 mls/hr Documented By: Infusion: 07/09/23 20:11 Dose: Infused [place]ed [place] [facility] [place]: 07/09/23 19:43 Dose: 400 mls/hr Documented By: CHARLY Metoprolol Tartrate (Metoprolol Tartrate 25 Mg Tab) 12.5 mg PO BID [facility] Stop: 08/08/23 08:59 Last Admin: 07/10/23 09:43 Dose: 12.5 mg Documented By: Admin: 07/09/23 21:03 Dose: 12.5 mg [place]ed [place]: [facility] [place]: 07/09/23 10:30 Dose: 12.5 mg Documented By: SOFIE Miscellaneous (Order Awaiting Action: Olopatadine 0.1 % Drops) 1 each N/A QS [facility] Stop: 08/08/23 07:59 Last Admin: 07/10/23 08:24 Dose: Not Given Documented By: Admin: 07/10/23 00:03 Dose: Not Given Documented By: Admin: 07/09/23 17:43 Dose: Not Given Documented By: [facility] Admin: 07/09/23 07:59 Dose: Not Given Documented By: SOFIE Ticagrelor (Ticagrelor 90 Mg Tab) 90 mg PO BID TADEO Stop: 08/09/23 08:59 Last Admin: 07/10/23 09:43 Dose: 90 mg Documented By: RAJANI Discontinued Medications Aspirin (Aspirin Chew 324 Mg) 324 mg PO NOW STA Stop: 07/09/23 03:30 Last Admin: 07/09/23 04:15 Dose: 324 mg Documented By: SUDHAKAR Fentanyl Citrate (Fentanyl Citrate Pf 100 Mcg/2 Ml Vial) Confirm Administered Dose 100 mcg .ROUTE .STK-MED ONE Stop: 07/09/23 13:48 Last Increment: 07/09/23 15:50 Dose: 50 mcg Documented By: TREVER Heparin Sodium (Porcine) (Heparin Sod (Porcine) 1000 Unit/Ml) 6,000 units IV NOW ONE Stop: 07/08/23 23:46 Last Admin: 07/09/23 00:18 Dose: 6,000 units Documented By: SUDHAKAR Co-signed By: JOHANA Heparin Sodium (Porcine) (Heparin (Porcine) 1000 Unit/Ml 10 Ml (Information Technology Internship Use Only)) Confirm Administered Dose 10,000 units .ROUTE .STK-MED ONE Stop: 07/09/23 13:48 Last Admin: 07/09/23 15:51 Dose: 9,000 units Documented By: TREVER Heparin Sodium/Sodium Chloride (Heparin In Nss Infusion 1000 Unit/500 Ml (2 U/Ml) Bag) Confirm Administered Dose 3,000 units IV .STK-MED ONE Stop: 07/09/23 13:49 Last Admin: 07/09/23 15:52 Dose: 3,000 units Documented By: TREVER Heparin Sodium/Dextrose (Heparin Sodium/Dextrose) 25,000 units in 500 mls @ 25 mls/hr IV .Q20H TADEO; Protocol Stop: 08/07/23 23:44 Last Titration: 07/09/23 17:19 Dose: Infused Documented By: ALISSON Co-signed By: Admin: 07/09/23 00:17 Dose: 1,250 units/hr, 25 mls/hr Documented By: SUDHAKAR Co-signed By: JOHANA Acetaminophen (Ofirmev) 1,000 mg in 100 mls @ 400 mls/hr IV NOW STA Stop: 07/09/23 02:30 Last Infusion: 07/09/23 02:42 Dose: Infused Documented By: Admin: 07/09/23 02:27 Dose: 400 mls/hr Documented By: SUDHAKAR Famotidine (Pepcid 20mg Iv Push) 20 mg in 5 mls @ 2.5 mls/min IV NOW STA Stop: 07/09/23 02:23 Last Admin: 07/09/23 02:27 Dose: 2.5 mls/min Documented By: SUDHAKAR Ioversol (Optiray 350) Confirm Administered Dose 1 ml .ROUTE .STK-MED ONE Stop: 07/09/23 13:51 Last Admin: 07/09/23 15:53 Dose: 1 ml Documented By: TREVER Labetalol HCl (Labetalol Hcl Iv 5 Mg/Ml 20ml) 5 mg IV NOW STA Stop: 07/09/23 02:20 Last Admin: 07/09/23 02:45 Dose: 5 mg Documented By: SUDHAKAR Co-signed By: JOHANA Midazolam HCl (Midazolam Hcl 1 Mg/Ml 2ml Vial) Confirm Administered Dose 2 mg .ROUTE .STK-MED ONE Stop: 07/09/23 13:48 Last Admin: 07/09/23 15:51 Dose: 3 mg Documented By: TREVER Midazolam HCl (Midazolam Hcl 1 Mg/Ml 2ml Vial) Confirm Administered Dose 2 mg .ROUTE .STK-MED ONE Stop: 07/09/23 15:10 Last Admin: 07/09/23 15:57 Dose: Not Given Documented By: TREVER Nicardipine HCl (Nicardipine Hcl Inj 2.5 Mg/Ml 10 Ml Amp) Confirm Administered Dose 25 mg .ROUTE .STK-MED ONE Stop: 07/09/23 13:48 Last Admin: 07/09/23 15:52 Dose: 25 mg Documented By: TREVER Nitroglycerin (Nitroglycerin Sl 0.4 Mg/Tab Tab) 0.4 mg SL NOW STA Stop: 07/08/23 23:40 Last Admin: 07/08/23 23:53 Dose: 0.4 mg Documented By: SUDHAKAR Nitroglycerin (Nitroglycerin 2% Ointment 30gm Tube) 0.5 inch EXT Q6H [facility] Stop: 08/08/23 03:29 Last Admin: 07/10/23 04:07 Dose: Not Given Documented By: Admin: 07/09/23 21:33 Dose: 0.5 inch Documented By: Admin: 07/09/23 17:41 Dose: Not Given Documented By: Admin: 07/09/23 10:36 Dose: 0.5 inch Documented By: Admin: 07/09/23 04:16 Dose: 0.5 inch Documented By: SUDHKAAR Nitroglycerin/Dextrose (Nitroglycerin/D5w 100mcg/Ml 20ml Syr) Confirm Administered Dose 2,000 mcg .ROUTE .STK-MED ONE Stop: 07/09/23 13:49 Last Admin: 07/09/23 15:52 Dose: 2,000 mcg Documented By: TREVER Oxycodone HCl (Oxycodone Hcl Ir 5 Mg Tab (Immediate Release)) 5 mg PO NOW STA Stop: 07/10/23 01:34 Last Admin: 07/10/23 01:37 Dose: 5 mg Documented By: CHARLY Oxycodone HCl (Oxycodone Hcl Ir 5 Mg Tab (Immediate Release)) 7.5 mg PO NOW STA Stop: 07/10/23 06:21 Last Admin: 07/10/23 06:35 Dose: 7.5 mg Documented By: CHARLY Ticagrelor (Ticagrelor 90 Mg Tab) Confirm Administered Dose 180 mg .ROUTE .STK- MED ONE Stop: 07/09/23 15:44 Last Admin: 07/09/23 15:57 Dose: 180 mg Documented By: TREVER Imaging Data Radiologist's Impression: Chest X-Ray 07/08/23 21:22 XR chest 1V portable CLINICAL HISTORY: Chest pain, nonspecific. COMPARISON STUDY: No previous studies for comparison. FINDINGS: Lung volumes are normal. Lungs are clear. There is no pneumothorax or pleural effusion. Cardiac size is normal. Mediastinal contours are normal. There is no evidence for pulmonary edema. IMPRESSION: No acute cardiopulmonary findings. ACT 112: Negative or not required by law. Electronically signed by: Genaro Dueñas M.D. 07/09/2023 6:58 AM Discharge Plan Visit Data Chief Complaint: Chest Pain Stated Complaint: CHEST PRESSURE ED Provider: Carmelina Escobar Discharge Problem: Acute non-ST elevation myocardial infarction (NSTEMI) Patient Disposition: Admitted As Inpatient Discharge Instructions Interventions: ED Discharge Assessment Last Done: 07/09/23 04:53
[2023-07-09 08:38] LABS: Chol HDL Ratio 3.6 (0-5)
[2023-07-09] MEDS: METOPROLOL TARTRATE 25 MG TAB PO SCH ×2 (10:30→21:03)
[2023-07-09] MEDS: ASPIRIN 81 MG ECTAB PO SCH (10:30)
[2023-07-09] MEDS: ATORVASTATIN 40 MG TAB PO SCH (11:01)
--- NOTE | 2023-07-09 13:19 | Cardiology Consultation ---
Date of Consultation July 09, 2023 Assessment & Plan (1) Acute non-ST elevation myocardial infarction (NSTEMI): (2) Dyslipidemia, goal LDL below 70: (3) HTN (hypertension): Plan 63-year-old female admitted with NSTEMI. Echocardiogram demonstrating lateral and basal posterior hypokinesis suggesting most likely left circumflex territory ischemic heart disease. Recommend cardiac catheterization. Risk, benefits, and alternatives to procedure discussed at length. Patient agreeable to proceed. Continue IV heparin, aspirin, beta-rodri, and high intensity statin therapy. Further recommendations pending result of cardiac catheterization. History of Present Illness Reason for Consultation: NSTEMI Requesting Physician: Dr. Beltre Attending Physician: Rafa Zheng MD History of Present Illness 63-year-old female presents the emergency department with intermittent chest discomfort over the past 5 days. On the day of admission, she experienced episode of severe, substernal chest pressure and squeezing. Discomfort 9 out of 10 at its worst. She came to the ER for further evaluation and treatment. Pain-free after sublingual nitroglycerin. Currently treated with topical nitrates, beta-rodri, aspirin, statin, and IV heparin. Pain-free at this time. Denies orthopnea, PND, or lower extremity edema. No palpitations, lightheadedness, dizziness, syncope, or near syncope. Denies personal history of coronary disease, congestive heart failure, or rheumatic fever as a child. Allergies Allergy/AdvReac Type Severity Reaction Status Date / Time Penicillins Allergy Unknown Verified 07/08/23 23:34 Home Medications Medication Instructions Recorded Confirmed Type betamethasone valerate 0.12 % 1 applic topical DAILY 07/08/23 07/08/23 History topical foam celecoxib 200 mg capsule 200 mg PO QAM 07/08/23 07/08/23 History clobetasol 0.05 % scalp solution 1 applic topical BID 07/08/23 07/08/23 History conj estrogen-medroxyprogesterone 1 tab PO DAILY 07/08/23 07/08/23 History 0.3 mg-1.5 mg tablet (Prempro) naratriptan 2.5 mg tablet 2.5 mg PO DAILY PRN Headache 07/08/23 07/08/23 History olopatadine 0.1 % eye drops 1 drp OPB BID 07/08/23 07/08/23 History Patient History Medical History Deep vein thrombosis (DVT) lower extremity 2010 after knee surgery Depression Migraines Surgical History S/P colonoscopy H/O induced surgically S/P knee surgery S/P breast biopsy percutaneous needle core- right breast, benign 2018 Family History Father Liver cancer Family/Other Migraine headache Sister Thyroid disease Uterine cancer Mother Thyroid disease Denies family history of Ovarian cancer Breast cancer Colorectal cancer Social History Smoking Status: Never smoker Do You Dip or Chew Tobacco: No; Hx Alcohol Use: No Hx Substance Use: No Preferred Language: Portuguese 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 Beliefs That Will Affect Care: None marital status: Current Living Situation: Alone current occupational status: employed current occupation: [employer] Other Information That Helps Us Care for You: No Feels Safe at Home: Yes Safety Concerns: Feels Safe At This Time Assistive Devices: None Review of Systems Review of Systems: All systems reviewed & are unremarkable except as noted in Subjective Physical Exam Constitutional: well nourished; no acute distress and not ill appearing Respiratory: no respiratory distress, no labored breathing and no retractions Auscultation: no crackles, no rales, no rhonchi and no wheezes Cardiovascular: Rate/Rhythm: regular rate and regular rhythm Heart Sounds: normal S1 and normal S2; no murmur Vessels: femoral pulses present and radial pulses present; no JVD Extremities: no edema Gastrointestinal (Abdomen): Inspection/Auscultation: normal bowel sounds; abdomen not distended Percussion/Palpation: abdomen soft; abdomen nontender, no guarding and abdomen not rigid Neurologic: CN's II-XI intact bilaterally and moves all extremities; no focal motor deficits Results & Data Vital Signs (Past 12 Hours) Vital Signs Temp Pulse Pulse Resp BP BP Pulse Ox 07/09/23 08:56 78 07/09/23 05:57 161/104 H 07/09/23 05:52 36.9 C 84 14 172/108 H 96 07/09/23 05:30 73 19 93 07/09/23 05:30 151/100 H 07/09/23 05:26 71 16 155/96 H 94 07/09/23 05:26 07/09/23 05:20 72 22 93 07/09/23 05:10 82 21 94 07/09/23 05:00 69 19 93 07/09/23 05:00 155/96 H 07/09/23 04:50 69 19 93 07/09/23 04:40 71 20 93 07/09/23 04:30 172/109 H 07/09/23 04:30 78 19 95 07/09/23 04:20 82 17 97 07/09/23 04:10 71 18 95 07/09/23 04:00 166/115 H 07/09/23 04:00 67 19 94 07/09/23 03:50 74 18 96 07/09/23 03:40 73 19 94 07/09/23 03:32 71 18 96 07/09/23 03:31 166/105 H 07/09/23 03:08 80 16 96 07/09/23 03:06 70 07/09/23 03:00 72 18 96 07/09/23 03:00 70 166/105 H 07/09/23 02:50 69 18 96 07/09/23 02:49 164/108 H 07/09/23 02:49 74 12 97 07/09/23 02:45 71 162/105 H 07/09/23 02:40 72 17 97 07/09/23 02:30 82 13 98 07/09/23 02:20 98 07/09/23 02:10 97 07/09/23 02:00 162/105 H 07/09/23 02:00 95 07/09/23 01:50 95 07/09/23 01:40 96 07/09/23 01:32 96 07/09/23 01:31 184/97 H 07/09/23 01:24 88 15 96 07/09/23 01:20 78 21 97 Pulse Ox O2 Del Method O2 Del Method 07/09/23 08:56 07/09/23 05:57 07/09/23 05:52 Room Air 07/09/23 05:30 07/09/23 05:30 07/09/23 05:26 Room Air 07/09/23 05:26 93 Room Air 07/09/23 05:20 07/09/23 05:10 07/09/23 05:00 07/09/23 05:00 07/09/23 04:50 07/09/23 04:40 07/09/23 04:30 07/09/23 04:30 07/09/23 04:20 07/09/23 04:10 07/09/23 04:00 07/09/23 04:00 07/09/23 03:50 07/09/23 03:40 07/09/23 03:32 07/09/23 03:31 07/09/23 03:08 07/09/23 03:06 07/09/23 03:00 07/09/23 03:00 07/09/23 02:50 07/09/23 02:49 07/09/23 02:49 07/09/23 02:45 07/09/23 02:40 07/09/23 02:30 07/09/23 02:20 07/09/23 02:10 07/09/23 02:00 07/09/23 02:00 07/09/23 01:50 07/09/23 01:40 07/09/23 01:32 07/09/23 01:31 07/09/23 01:24 07/09/23 01:20 Laboratory Results Cardiac Enzymes 07/08/23 07/08/23 07/09/23 Range/Units 21:29 23:48 06:23 AST 28 (13-39) U/L Troponin I High Sens 1225.0 H* 1540.5 H* D 3841.6 H* D (0-14) pg/ml 07/09/23 Range/Units 11:15 AST (13-39) U/L Troponin I High Sens 4978.3 H* D (0-14) pg/ml Coagulation 07/08/23 07/09/23 Range/Units 21:28 06:23 APTT 22.7 58.0 H* (21.0-31.0) Seconds Lipids 07/09/23 Range/Units 06:23 Triglycerides 148 (0-150) mg/dl Cholesterol 211 H (0-200) mg/dl HDL Cholesterol 58 mg/dl Cholesterol/HDL Ratio 3.6 (0-5) CBC 07/08/23 07/09/23 Range/Units 21:29 06:23 WBC 6.34 7.23 (4.8-10.8) K/ul RBC 4.90 4.73 (4.20-5.40) M/uL Hgb 15.2 14.8 (12.0-16.0) g/dl Hct 45.2 42.5 (37.0-47.0) % Plt Count 227 238 (130-400) K/uL Neut # (Auto) 4.35 5.48 (1.40-6.50) K/uL Lymph # (Auto) 1.33 1.26 (1.20-3.40) K/uL Knott # (Auto) 0.46 0.41 (0.11-0.59) K/uL Eos # (Auto) 0.17 0.06 (0.00-0.50) K/uL Baso # (Auto) 0.01 0.00 (0.00-0.20) K/uL Comprehensive Metabolic Panel 07/08/23 07/09/23 Range/Units 21:29 06:23 Sodium 140 142 (136-145) mmol/L Potassium 4.0 4.1 (3.5-5.1) mmol/L Chloride 108 H 109 H (98-107) mmol/L Carbon Dioxide 22 22 (21-32) mmol/L BUN 20 13 (6-23) mg/dl Creatinine 0.95 0.77 (0.6-1.2) mg/dl Glucose 97 110 H (70-99(Fasting)) mg/dl Calcium 9.0 8.7 (8.6-10.3) mg/dl AST 28 (13-39) U/L ALT 27 (7-52) U/L Alkaline Phosphatase 54 (34-104) U/L Total Protein 7.0 (6.0-8.3) gm/dl Albumin 4.4 (3.4-5.0) gm/dl Intake and Output 07/08/23 07/09/23 07/09/23 22:59 06:59 14:59 Intake Total 100 / 100 Balance 100 / 100 Intake: IV 100 / 100 Acetaminophen 1,000 mg In 100 100 / 100 ml @ 400 mls/hr IV NOW STA Rx#: [id number] Other: Weight 85.5 kg 85 kg Weight Measurement Method Chair Scale Built in [facility] (3) HTN (hypertension) Hypertension type: primary hypertension Qualified Code(s): I10 - Essential (primary) hypertension
[2023-07-09] MEDS ORDERED: MIDAZOLAM HCL 1 MG/ML 2ML VIAL ONE ×2 (13:47→15:09)
[2023-07-09] MEDS ORDERED: HEPARIN (PORCINE) 1000 UNIT/ML 10 ML (CATH LAB USE ONLY) ONE (13:47)
[2023-07-09] MEDS ORDERED: niCARdipine HCL INJ 2.5 MG/ML 10 ML AMP ONE (13:47)
[2023-07-09] MEDS ORDERED: fentaNYL citrate PF 100 MCG/2 ML VIAL ONE (13:47)
[2023-07-09] MEDS ORDERED: NITROGLYCERIN/D5W 100MCG/ML 20ML SYR ONE (13:48)
[2023-07-09] MEDS ORDERED: OPTIRAY 350 ONE (13:50)
--- NOTE | 2023-07-09 13:51 | Electrocardiogram Report ---
Test Reason : Blood Pressure : / mmHG Vent. Rate : 083 BPM Atrial Rate : 083 BPM P-R Int : 164 ms QRS Dur : 086 ms QT Int : 394 ms P-R-T Axes : 031 006 049 degrees QTc Int : 462 ms Normal sinus rhythm Normal ECG When compared with ECG of 08-JUL-2023 21:27, (unconfirmed) Minimal criteria for Anterior infarct are no longer Present Nonspecific T wave abnormality no longer evident in Inferior leads T wave inversion less evident in Anterior leads Confirmed by Yonathan Schneider ([id number]) on 07/09/2023 1:50:48 PM Referred By: REFERRED SELF Confirmed By:Zaheer Schneider
--- NOTE | 2023-07-09 14:01 | Electrocardiogram Report ---
Test Reason : Blood Pressure : / mmHG Vent. Rate : 089 BPM Atrial Rate : 089 BPM P-R Int : 162 ms QRS Dur : 086 ms QT Int : 382 ms P-R-T Axes : 019 -01 021 degrees QTc Int : 464 ms Normal sinus rhythm Nonspecific ST abnormality Abnormal ECG No previous ECGs available Confirmed by Yonathan Schneider ([id number]) on 07/09/2023 2:00:44 PM Referred By: REFERRED SELF Confirmed By:Zaheer Schneider
--- NOTE | 2023-07-09 14:11 | Pre Anesthesia Assessment ---
Date of Service July 09, 2023 Pre Sedation Assessment Vital Signs Temp Pulse Pulse Resp BP BP BP 07/09/23 16:47 69 153/97 H 07/09/23 16:24 36.6 C 65 154/93 H 07/09/23 16:05 65 18 127/90 07/09/23 15:50 65 18 151/89 H 07/09/23 13:40 80 18 143/91 H 07/09/23 08:56 78 07/09/23 05:57 161/104 H 07/09/23 05:52 36.9 C 84 14 172/108 H 07/09/23 05:30 73 19 07/09/23 05:30 151/100 H 07/09/23 05:26 71 16 155/96 H 07/09/23 05:26 07/09/23 05:20 72 22 07/09/23 05:10 82 21 07/09/23 05:00 69 19 07/09/23 05:00 155/96 H 07/09/23 04:50 69 19 07/09/23 04:40 71 20 07/09/23 04:30 172/109 H 07/09/23 04:30 78 19 07/09/23 04:20 82 17 07/09/23 04:10 71 18 07/09/23 04:00 166/115 H 07/09/23 04:00 67 19 07/09/23 03:50 74 18 07/09/23 03:40 73 19 07/09/23 03:32 71 18 07/09/23 03:31 166/105 H 07/09/23 03:08 80 16 07/09/23 03:06 70 07/09/23 03:00 72 18 07/09/23 03:00 70 166/105 H 07/09/23 02:50 69 18 07/09/23 02:49 164/108 H 07/09/23 02:49 74 12 07/09/23 02:45 71 162/105 H 07/09/23 02:40 72 17 07/09/23 02:30 82 13 07/09/23 02:20 07/09/23 02:10 07/09/23 02:00 162/105 H 07/09/23 02:00 07/09/23 01:50 07/09/23 01:40 07/09/23 01:32 07/09/23 01:31 184/97 H 07/09/23 01:24 88 15 07/09/23 01:20 78 21 07/09/23 01:10 75 17 07/09/23 01:00 78 22 07/09/23 01:00 172/100 H 07/09/23 01:00 78 18 184/97 H 07/09/23 00:50 86 17 07/09/23 00:40 76 22 07/09/23 00:30 126/99 07/09/23 00:30 80 19 07/09/23 00:20 76 17 07/09/23 00:10 72 17 07/09/23 00:00 157/87 H 07/09/23 00:00 90 20 157/87 H 07/08/23 23:50 84 23 07/08/23 23:40 83 20 07/08/23 23:30 187/114 H 07/08/23 23:30 86 22 07/08/23 23:23 182/115 H 07/08/23 23:23 81 19 07/08/23 23:20 121 H 19 07/08/23 23:10 87 13 07/08/23 23:04 86 20 07/08/23 23:04 88 16 07/08/23 23:03 196/114 H 07/08/23 23:00 88 18 196/114 H 07/08/23 21:18 90 18 181/108 H Pulse Ox Pulse Ox O2 Del Method O2 Del Method 07/09/23 16:47 95 Room Air 07/09/23 16:24 94 Room Air 07/09/23 16:05 95 Room Air 07/09/23 15:50 95 Room Air 07/09/23 13:40 96 Room Air 07/09/23 08:56 07/09/23 05:57 07/09/23 05:52 96 Room Air 07/09/23 05:30 93 07/09/23 05:30 07/09/23 05:26 94 Room Air 07/09/23 05:26 93 Room Air 07/09/23 05:20 93 07/09/23 05:10 94 07/09/23 05:00 93 07/09/23 05:00 07/09/23 04:50 93 07/09/23 04:40 93 07/09/23 04:30 07/09/23 04:30 95 07/09/23 04:20 97 07/09/23 04:10 95 07/09/23 04:00 07/09/23 04:00 94 07/09/23 03:50 96 07/09/23 03:40 94 07/09/23 03:32 96 07/09/23 03:31 07/09/23 03:08 96 07/09/23 03:06 07/09/23 03:00 96 07/09/23 03:00 07/09/23 02:50 96 07/09/23 02:49 07/09/23 02:49 97 07/09/23 02:45 07/09/23 02:40 97 07/09/23 02:30 98 07/09/23 02:20 98 07/09/23 02:10 97 07/09/23 02:00 07/09/23 02:00 95 07/09/23 01:50 95 07/09/23 01:40 96 07/09/23 01:32 96 07/09/23 01:31 07/09/23 01:24 96 07/09/23 01:20 97 07/09/23 01:10 98 07/09/23 01:00 95 07/09/23 01:00 07/09/23 01:00 96 Room Air 07/09/23 00:50 96 07/09/23 00:40 96 07/09/23 00:30 07/09/23 00:30 96 07/09/23 00:20 96 07/09/23 00:10 96 07/09/23 00:00 07/09/23 00:00 96 07/08/23 23:50 98 07/08/23 23:40 07/08/23 23:30 07/08/23 23:30 100 07/08/23 23:23 07/08/23 23:23 100 07/08/23 23:20 99 07/08/23 23:10 100 07/08/23 23:04 99 07/08/23 23:04 99 Room Air 07/08/23 23:03 07/08/23 23:00 100 Room Air 07/08/23 21:18 97 Room Air Cardiovascular + regular rate and + regular rhythm + S1 normal and + S2 normal; no murmur + femoral pulses present and + radial pulses present; no JVD and no carotid bruit no edema Respiratory + respiratory effort normal; no respiratory distress, no labored breathing and no retractions no crackles, no rales, no rhonchi and no wheezes Pre-Sedation Airway Assessment Smoking Status: Never smoker Hx Sleep Apnea: No Short, Thick Neck: No Thyromental Distance: > or= 3.5 Finger Breadths Oral Cavity: + WNL Mallampati Class: II ASA: ASA3 NPO Status Date of Last Intake of Fluids: 07/09/23 Time of Last Intake of Fluids: 10:00 Last Oral Intake of Fluids Comment: sips Date of Last Intake of Solid Food: 07/08/23 Time of Last Intake of Solid Foods: 08:00 Procedure Planning Contraindications for Sedation: none Current Medications Reviewed: Yes Notes The planned sedation has been discussed with the patient. Informed Consent was obtained. I have identified the patient, determined the appropriateness of sedation and have assessed the patient immediately prior to the procedure. All medicine(s) and interventions are by my order.
--- NOTE | 2023-07-09 15:06 | Post Anesthesia Assessment ---
Date of Service July 09, 2023 Post Sedation Assessment Vital Signs Temp Pulse Pulse Resp BP BP BP 07/09/23 16:47 69 153/97 H 07/09/23 16:24 36.6 C 65 154/93 H 07/09/23 16:05 65 18 127/90 07/09/23 15:50 65 18 151/89 H 07/09/23 13:40 80 18 143/91 H 07/09/23 08:56 78 07/09/23 05:57 161/104 H 07/09/23 05:52 36.9 C 84 14 172/108 H 07/09/23 05:30 73 19 07/09/23 05:30 151/100 H 07/09/23 05:26 71 16 155/96 H 07/09/23 05:26 07/09/23 05:20 72 22 07/09/23 05:10 82 21 07/09/23 05:00 69 19 07/09/23 05:00 155/96 H 07/09/23 04:50 69 19 07/09/23 04:40 71 20 07/09/23 04:30 172/109 H 07/09/23 04:30 78 19 07/09/23 04:20 82 17 07/09/23 04:10 71 18 07/09/23 04:00 166/115 H 07/09/23 04:00 67 19 07/09/23 03:50 74 18 07/09/23 03:40 73 19 07/09/23 03:32 71 18 07/09/23 03:31 166/105 H 07/09/23 03:08 80 16 07/09/23 03:06 70 07/09/23 03:00 72 18 07/09/23 03:00 70 166/105 H 07/09/23 02:50 69 18 07/09/23 02:49 164/108 H 07/09/23 02:49 74 12 07/09/23 02:45 71 162/105 H 07/09/23 02:40 72 17 07/09/23 02:30 82 13 07/09/23 02:20 07/09/23 02:10 07/09/23 02:00 162/105 H 07/09/23 02:00 07/09/23 01:50 07/09/23 01:40 07/09/23 01:32 07/09/23 01:31 184/97 H 07/09/23 01:24 88 15 07/09/23 01:20 78 21 07/09/23 01:10 75 17 07/09/23 01:00 78 22 07/09/23 01:00 172/100 H 07/09/23 01:00 78 18 184/97 H 07/09/23 00:50 86 17 07/09/23 00:40 76 22 07/09/23 00:30 126/99 07/09/23 00:30 80 19 07/09/23 00:20 76 17 07/09/23 00:10 72 17 07/09/23 00:00 157/87 H 07/09/23 00:00 90 20 157/87 H 07/08/23 23:50 84 23 07/08/23 23:40 83 20 07/08/23 23:30 187/114 H 07/08/23 23:30 86 22 07/08/23 23:23 182/115 H 07/08/23 23:23 81 19 07/08/23 23:20 121 H 19 07/08/23 23:10 87 13 07/08/23 23:04 86 20 07/08/23 23:04 88 16 07/08/23 23:03 196/114 H 07/08/23 23:00 88 18 196/114 H 07/08/23 21:18 90 18 181/108 H Pulse Ox Pulse Ox O2 Del Method O2 Del Method 07/09/23 16:47 95 Room Air 07/09/23 16:24 94 Room Air 07/09/23 16:05 95 Room Air 07/09/23 15:50 95 Room Air 07/09/23 13:40 96 Room Air 07/09/23 08:56 07/09/23 05:57 07/09/23 05:52 96 Room Air 07/09/23 05:30 93 07/09/23 05:30 07/09/23 05:26 94 Room Air 07/09/23 05:26 93 Room Air 07/09/23 05:20 93 07/09/23 05:10 94 07/09/23 05:00 93 07/09/23 05:00 07/09/23 04:50 93 07/09/23 04:40 93 07/09/23 04:30 07/09/23 04:30 95 07/09/23 04:20 97 07/09/23 04:10 95 07/09/23 04:00 07/09/23 04:00 94 07/09/23 03:50 96 07/09/23 03:40 94 07/09/23 03:32 96 07/09/23 03:31 07/09/23 03:08 96 07/09/23 03:06 07/09/23 03:00 96 07/09/23 03:00 07/09/23 02:50 96 07/09/23 02:49 07/09/23 02:49 97 07/09/23 02:45 07/09/23 02:40 97 07/09/23 02:30 98 07/09/23 02:20 98 07/09/23 02:10 97 07/09/23 02:00 07/09/23 02:00 95 07/09/23 01:50 95 07/09/23 01:40 96 07/09/23 01:32 96 07/09/23 01:31 07/09/23 01:24 96 07/09/23 01:20 97 07/09/23 01:10 98 07/09/23 01:00 95 07/09/23 01:00 07/09/23 01:00 96 Room Air 07/09/23 00:50 96 07/09/23 00:40 96 07/09/23 00:30 07/09/23 00:30 96 07/09/23 00:20 96 07/09/23 00:10 96 07/09/23 00:00 07/09/23 00:00 96 07/08/23 23:50 98 07/08/23 23:40 07/08/23 23:30 07/08/23 23:30 100 07/08/23 23:23 07/08/23 23:23 100 07/08/23 23:20 99 07/08/23 23:10 100 07/08/23 23:04 99 07/08/23 23:04 99 Room Air 07/08/23 23:03 07/08/23 23:00 100 Room Air 07/08/23 21:18 97 Room Air Recovery Score Respiration: Deep Breath/Cough Circulation: +/-20% PreAnes Value Consciousness: Arouseable (by name) Oxygen Saturation: > 92% On Room Air Discharge Sedation Level of Care: Phase I Post Sedation Plan On clinical assessment, the patient appears to have tolerated the sedation without complications. Patient is recovering as anticipated. Patient will continue to be monitored by nursing and may be discharged when sedation discharge criteria are met per below protocol. Upon Completions of procedure up to 15 minutes continue every 5 minute vital signs and the P.A.R. score; then discharge to a Phase I or Fast Track to Phase II per the following guidelines: * Discharge Patient to appropriate Phase II area if PAR is 8 or greater or return to pre- procedure baseline. The post - procedure orders will be as directed. * If PAR score is less than 8 or not return to pre-procedure baseline then patient will follow Phase I monitoring till PAR is reached for Phase II. The Phase I may be done in procedure room or may call to secure a Phase I area. * If naloxone or flumazenil are used for reversal, hold in Phase I for continued monitoring from when last reversal dose was given for a minimum of 60 minutes or longer pending the nurse and/or physician discretion of patient condition before discharge to Phase II. Please call the Sedation Physician to re-evaluate and complete post-note for discharge to Phase II area. Do NOT discharge from procedure sedation or Phase 1 until post- sedation evaluation note is complete by procedure /sedation MD Sedation Discharge Instructions to be given to the patient at discharge to home.
--- NOTE | 2023-07-09 15:18 | Cardiac Catheterization ---
Cardiac Cath Procedure Full Procedure Date July 09, 2023 Pre-Procedure Diagnosis Pre-Procedure Diagnosis: Non STEMI AUC Score AUC Score: 8 Post-Procedure Diagnosis Post-Procedure Diagnosis: Severe CAD and Normal Intracardiac Pressures Procedure(s) Performed Procedure(s) Performed: Coronary Angiography and Left Heart Cath Prototype Technician Chandan Gonzalez DO Sweatband Shaper(s) Ned RTJeny Estimated Blood Loss Estimated Blood Loss: 6cc Medication(s) Medication(s): Fentanyl, Heparin, Lidocaine 1%, Nicardipine, Nitroglycerin and Versed Summary of Findings 99% mid Left circumflex. Hemodynamics Rest Ao:: 136/84/106 Final Ao: 147/84/112 LV: 138/0/10 Recommendations Recommendations: PCI without planned CABG Specimens Specimens: None Radiation Exposure (mGy) 647 Contrast (mls) 30 Fluids (cc crystalloids) Fluids (cc crystalloids): 78 Drains Drains: N/A Anesthesia Moderate sedation. Start 1438. End 1506. Sedation monitor: Bret RN Procedural Complication(s) None I attest to the content of the Intraoperative Record and any orders documented therein. Any exceptions are noted below. 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 CAD Presenation: Non STEMI Anginal Classification: CCS IV Heart Failure: No Coronary Anatomy Dominant: Right Left Main (% Stenosis): Normal LAD (% Stenosis): Proximal (220%) D1 (% Stenosis): Normal Circumflex (% Stenosis): Mid (99%) OM1 (% Stenosis): Normal (small vessel) OM2 (% Stenosis): Normal (moderate caliber vessel) RCA (% Stenosis): Normal R PDA (% Stenosis): Normal R PL1 (% Stenosis): Normal R PL2 (% Stenosis): Normal Diagnostic Physicians Name: Chandan Gonzalez DO Closure Device Percutaneous Entry Location: Radial Closure Device: Radial Band Recommendations: PCI without planned CABG Intraprocedure Events Significant Disection: No Perforation: No
--- NOTE | 2023-07-09 15:21 | Communication Note ---
Date of Service: July 09, 2023 Patient seen in the emergency department . She is awaiting to go to [facility]. She reports that she does not have any chest pain at the moment. Will await [facility]. Continue on heparin drip, Lipitor, aspirin. On physical exam; Constitutional: WD/WN, vitals as above, NAD, sitting up in bed, pleasant, conversing easily Respiratory: Bilateral vesicular breath sound. Cardiovascular: RRR, no murmur, no edema Vessels: no JVD or carotid bruit Chest: normal inspection of chest Abdomen: normal bowel sounds, soft, nontender, no hepatosplenomegaly Musculoskeletal: no cyanosis or clubbing, extremities motor strength 5/5 Skin: no rashes, warm and dry normal turgor Neurologic: PERRL, EOMI, accommodation nl, no face palsy, no dysarthria CN's II- XI intact bilaterally and moves all extremities Psychiatric: A+Ox3, euthymic affect
[2023-07-09] MEDS ORDERED: TICAGRELOR 90 MG TAB ONE (15:43)
--- NOTE | 2023-07-09 16:04 | Post Anesthesia Assessment ---
Date of Service July 09, 2023 Post Sedation Assessment Vital Signs Temp Pulse Pulse Resp BP BP Pulse Ox 07/09/23 13:40 80 18 143/91 H 96 07/09/23 08:56 78 07/09/23 05:57 161/104 H 07/09/23 05:52 36.9 C 84 14 172/108 H 96 07/09/23 05:30 73 19 93 07/09/23 05:30 151/100 H 07/09/23 05:26 71 16 155/96 H 94 07/09/23 05:26 07/09/23 05:20 72 22 93 07/09/23 05:10 82 21 94 07/09/23 05:00 69 19 93 07/09/23 05:00 155/96 H 07/09/23 04:50 69 19 93 07/09/23 04:40 71 20 93 07/09/23 04:30 172/109 H 07/09/23 04:30 78 19 95 07/09/23 04:20 82 17 97 07/09/23 04:10 71 18 95 07/09/23 04:00 166/115 H 07/09/23 04:00 67 19 94 07/09/23 03:50 74 18 96 07/09/23 03:40 73 19 94 07/09/23 03:32 71 18 96 07/09/23 03:31 166/105 H 07/09/23 03:08 80 16 96 07/09/23 03:06 70 07/09/23 03:00 72 18 96 07/09/23 03:00 70 166/105 H 07/09/23 02:50 69 18 96 07/09/23 02:49 164/108 H 07/09/23 02:49 74 12 97 07/09/23 02:45 71 162/105 H 07/09/23 02:40 72 17 97 07/09/23 02:30 82 13 98 07/09/23 02:20 98 07/09/23 02:10 97 07/09/23 02:00 162/105 H 07/09/23 02:00 95 07/09/23 01:50 95 07/09/23 01:40 96 07/09/23 01:32 96 07/09/23 01:31 184/97 H 07/09/23 01:24 88 15 96 07/09/23 01:20 78 21 97 07/09/23 01:10 75 17 98 07/09/23 01:00 78 22 95 07/09/23 01:00 172/100 H 07/09/23 01:00 78 18 184/97 H 96 07/09/23 00:50 86 17 96 07/09/23 00:40 76 22 96 07/09/23 00:30 126/99 07/09/23 00:30 80 19 96 07/09/23 00:20 76 17 96 07/09/23 00:10 72 17 96 07/09/23 00:00 157/87 H 07/09/23 00:00 90 20 157/87 H 96 07/08/23 23:50 84 23 98 07/08/23 23:40 83 20 07/08/23 23:30 187/114 H 07/08/23 23:30 86 22 100 07/08/23 23:23 182/115 H 07/08/23 23:23 81 19 100 07/08/23 23:20 121 H 19 99 07/08/23 23:10 87 13 100 07/08/23 23:04 86 20 99 07/08/23 23:04 88 16 99 07/08/23 23:03 196/114 H 07/08/23 23:00 88 18 196/114 H 100 07/08/23 21:18 90 18 181/108 H 97 Pulse Ox O2 Del Method O2 Del Method 07/09/23 13:40 Room Air 07/09/23 08:56 07/09/23 05:57 07/09/23 05:52 Room Air 07/09/23 05:30 07/09/23 05:30 07/09/23 05:26 Room Air 07/09/23 05:26 93 Room Air 07/09/23 05:20 07/09/23 05:10 07/09/23 05:00 07/09/23 05:00 07/09/23 04:50 07/09/23 04:40 07/09/23 04:30 07/09/23 04:30 07/09/23 04:20 07/09/23 04:10 07/09/23 04:00 07/09/23 04:00 07/09/23 03:50 07/09/23 03:40 07/09/23 03:32 07/09/23 03:31 07/09/23 03:08 07/09/23 03:06 07/09/23 03:00 07/09/23 03:00 07/09/23 02:50 07/09/23 02:49 07/09/23 02:49 07/09/23 02:45 07/09/23 02:40 07/09/23 02:30 07/09/23 02:20 07/09/23 02:10 07/09/23 02:00 07/09/23 02:00 07/09/23 01:50 07/09/23 01:40 07/09/23 01:32 07/09/23 01:31 07/09/23 01:24 07/09/23 01:20 07/09/23 01:10 07/09/23 01:00 07/09/23 01:00 07/09/23 01:00 Room Air 07/09/23 00:50 07/09/23 00:40 07/09/23 00:30 07/09/23 00:30 07/09/23 00:20 07/09/23 00:10 07/09/23 00:00 07/09/23 00:00 07/08/23 23:50 07/08/23 23:40 07/08/23 23:30 07/08/23 23:30 07/08/23 23:23 07/08/23 23:23 07/08/23 23:20 07/08/23 23:10 07/08/23 23:04 07/08/23 23:04 Room Air 07/08/23 23:03 07/08/23 23:00 Room Air 07/08/23 21:18 Room Air Recovery Score Activity: Moves 4 extremities Respiration: Deep Breath/Cough Circulation: +/-20% PreAnes Value Consciousness: Arouseable (by name) Oxygen Saturation: > 92% On Room Air Discharge Sedation Level of Care: Fast Track Phase II Post Sedation Plan On clinical assessment, the patient appears to have tolerated the sedation without complications. Patient is recovering as anticipated. Patient will continue to be monitored by nursing and may be discharged when sedation discharge criteria are met per below protocol. Upon Completions of procedure up to 15 minutes continue every 5 minute vital signs and the P.A.R. score; then discharge to a Phase I or Fast Track to Phase II per the following guidelines: * Discharge Patient to appropriate Phase II area if PAR is 8 or greater or return to pre- procedure baseline. The post - procedure orders will be as directed. * If PAR score is less than 8 or not return to pre-procedure baseline then patient will follow Phase I monitoring till PAR is reached for Phase II. The Phase I may be done in procedure room or may call to secure a Phase I area. * If naloxone or flumazenil are used for reversal, hold in Phase I for continued monitoring from when last reversal dose was given for a minimum of 60 minutes or longer pending the nurse and/or physician discretion of patient condition before discharge to Phase II. Please call the Sedation Physician to re-evaluate and complete post-note for discharge to Phase II area. Do NOT discharge from procedure sedation or Phase 1 until post- sedation eval uation note is complete by procedure /sedation MD Sedation Discharge Instructions to be given to the patient at discharge to home. [facility] Procedure Codes (Charges) Indication for Procedure Indication for procedure: NSTEMI Sedation/Anesthesia Procedure 1: Sedation/Anesthesia: 84293 Mod Sedation by a different physician ;Init15 Min Child Age 5&Up (Initial 15 min, new web press operator assistant. Start 1515) Total Sedation Time (minutes): 27 Procedure 2: Sedation/Anesthesia: 96345 Mod Sedation by a different physician;Ea Additional 15 Minutes (Additional 12 men, new web press operator assistant. End 1542) Total Sedation Time (minutes): 27
--- NOTE | 2023-07-09 16:12 | Cardiac Catheterization ---
[facility] Data: [employer] Records Analyst Cardiac Status Clinical evaluation leading to the procedure CAD Presenation: Non STEMI Anginal Classification: CCS IV Heart Failure: No Cardiogenic Shock within 24 Hours: No Cardiac Arrest within 24 Hours: No Imaging Studies Past 6 Months: No Diagnostic Physicians Name: Foreign Esquivel MD, PhD Closure Device Percutaneous Entry Location: Radial Closure Device: Radial Band Recommendations: Medical Therapy and/or Counseling and PCI without planned CABG PCI Indication: PCI for high risk Non-ALONSO Lesion Segment Name: Mid circumflex Culprit Artery: Yes Stenosis Prior to Rx (%): 95 to 99% Chronic Total Occlusion: No Pre-Procedure MARIA ESTHER Flow: 1 Previously Treated Lesion: No Lesion Complexity: Non-High/Non-C Lesion Length (mm): 8 Thrombus Present: Yes Bifurcation Lesion: No Guidewire Across Lesion: Yes Intraprocedure Events Significant Disection: No Perforation: No Cardiac Cath Procedure Full Procedure Date July 09, 2023 Pre-Procedure Diagnosis Pre-Procedure Diagnosis: Non STEMI AUC Score AUC Score: 07 Post-Procedure Diagnosis Post-Procedure Diagnosis: Severe CAD and Successful PCI Procedure(s) Performed Procedure(s) Performed: Drug Eluting Stent Director Of Procurement Foreign Esquivel MD, PhD Die Forger(s) Ned RTR Estimated Blood Loss Estimated Blood Loss: Less than 5 cc Medication(s) Medication(s): Fentanyl, Heparin, Lidocaine 1%, Nicardipine, Nitroglycerin and Versed Summary of Findings Brief description: Patient had just completed diagnostic coronary angiography performed by Dr. Gonzalez. She was sedated with a 6 Estonian radial artery glide sheath in her right wrist. We proceeded with PCI of the circumflex. ACT was checked and additional heparin provided as needed to maintain therapeutic ACT. A 6 Estonian EBU 3.0 guide catheter was used to engage the left main coronary. A BMW universal guidewire was advanced through the guide catheter and positioned distally in the obtuse marginal branch of the circumflex. The circumflex lesion was predilated with a 1.5 x 8 mm trek balloon at 8 joaquin Second dilatation was performed with a 2.0 x 12 mm trek balloon at 14 joaquin. A 2.25 x 12 mm Jovani drug-eluting stent was positioned across the lesion and then deployed at 12 joaquin. Second inflation performed to 14 joaquin. Proximal portion of the stent was postdilated with a 2.5 x 6 mm NC Sprinter balloon at 10 followed by 12 joaquin. Balloon and guidewire were removed. Coronary angiography was performed in orthogonal views. Guide catheter was removed. Patient was provided 180 mg p.o. Brilinta and additional heparin was provided IV. The radial artery sheath was then removed and hemostasis obtained using the TR band. Patient was hemodynamically stable and asymptomatic. She was returned to the recovery area. This ended the case. PCI of circumflex: 0% residual stenosis post PCI No evidence of dissection or perforation post PCI MARIA ESTHER-3 flow post PCI Hemodynamics Rest Ao:: 134/86 mmHg Final Ao: 163/90 mmHg LV: Not performed by me Recommendations Recommendations: Medical Therapy and/or Counseling and PCI without planned CABG Specimens Specimens: None Radiation Exposure (mGy) 2363 mGy total (diagnostic and intervention), 9.9 minutes fluoroscopy time Contrast (mls) 112 mL Drains Drains: N/A Anesthesia 1 mg IV Versed, 25 mcg IV fentanyl start 151, end 154. Procedural Complication(s) None Disposition Recovery Room\PACU I attest to the content of the Intraoperative Record and any orders documented therein. Any exceptions are noted below. [facility] Card Cath Procedure Codes Moderate Sedation Procedure 1: Sedation/Anesthesia: 71992 Mod Sedation by a different physician ;Init15 Min Child Age 5&Up (Initial 15 min, new adzing and boring machine operator. Start 151) Procedure 2: Sedation/Anesthesia: 18067 Mod Sedation by a different physician;Ea Additional 15 Minutes (Additional 12 men, new adzing and boring machine operator. End 154) Stenting Procedure 1: Cardiovascular Stent Procedures: 71255 Perc transluminal revascularization of acute sub/total occl, aMI (LCx) PG Care Time/CCT Total # of Minutes Spent Total Time Spent with Patient: Total time spent is greater than 50% in coordination of care (as documented) at patient's floor/unit and/or counseling patient:
--- NOTE | 2023-07-09 16:27 | Electrocardiogram Report ---
Test Reason : Blood Pressure : / mmHG Vent. Rate : 074 BPM Atrial Rate : 074 BPM P-R Int : 188 ms QRS Dur : 080 ms QT Int : 406 ms P-R-T Axes : 051 -05 057 degrees QTc Int : 450 ms Normal sinus rhythm Poor R wave progression, consider anterior AK vs. lead placement vs. LVH Abnormal ECG When compared with ECG of 08-JUL-2023 23:39, Anterior infarct is now Present Confirmed by Yonathan Schneider ([id number]) on 07/09/2023 4:27:13 PM Referred By: REFERRED SELF Confirmed By:Zaheer Schneider
--- NOTE | 2023-07-09 16:31 | Electrocardiogram Report ---
Test Reason : Blood Pressure : / mmHG Vent. Rate : 062 BPM Atrial Rate : 062 BPM P-R Int : 184 ms QRS Dur : 092 ms QT Int : 472 ms P-R-T Axes : 051 -03 058 degrees QTc Int : 479 ms Normal sinus rhythm Normal ECG When compared with ECG of 09-JUL-2023 09:10, (unconfirmed) No significant change was found Confirmed by Yonathan Schneider ([id number]) on 07/09/2023 4:31:29 PM Referred By: REFERRED SELF Confirmed By:Zaheer Schneider
[2023-07-09] MEDS: ACETAMINOPHEN 1,000 MG/100 ML VIAL IV PRN (19:43)
[2023-07-10] MEDS ORDERED: oxyCODONE HCL IR 5 MG TAB (IMMEDIATE RELEASE) PO STA ×2 (01:33→06:20)
[2023-07-10] MEDS: NITROGLYCERIN 2% OINTMENT 30GM TUBE EXT SCH (04:07)
[2023-07-10] MEDS: ACETAMINOPHEN 1,000 MG/100 ML VIAL IV PRN (05:37)
[2023-07-10 07:14] LABS: BUN Creatinine Ratio 14.8 (10-20); Calcium 8.6 mg/dl (8.6-10.3); Creatinine Clr Calc Pharmacy 80.6 ml/min; Est GFR (African American) 90.9 ml/min; Est GFR (Non-African American) 78.4 ml/min; Potassium 3.9 mmol/L (3.5-5.1)
--- NOTE | 2023-07-10 07:26 | Communication Note ---
Date of Service: July 10, 2023 Patient having migraines. Iv tylenol not helping. At home patient takes naratriptan with ibuprofen . Both are contraindicated currently. Ordered oxycod one for now. Thanks
[2023-07-10 07:47] LABS: Basophils # (auto) 0.01 K/uL (0.00-0.20); Basophils % (auto) 0.1 %; Eosinophils # (auto) 0.05 K/uL (0.00-0.50); Eosinophils % (auto) 0.6 %; Hematocrit (blood only) 41.9 % (37.0-47.0); Hemoglobin 14.9 g/dl (12.0-16.0); Immature Granulocytes # (auto) 0.04 K/uL (0.01-0.20); Immature Granulocytes % (auto) 0.5 %; Lymphocytes # (auto) 0.79 K/uL (1.20-3.40); Lymphocytes % (auto) 9.3 %; Mean Corpuscular Hemoglobin 31.6 pg (25.0-34.0); Mean Corpuscular Hgb Conc 35.6 g/dL (32.0-36.0); Mean Platelet Volume 10.1 fL (9.4-12.4); Monocytes # (auto) 0.47 K/uL (0.11-0.59); Monocytes % (auto) 5.5 %; Neutrophils # (auto) 7.18 K/uL (1.40-6.50); Platelet Count 235 K/uL (130-400); RDW Coefficient of Variation 13.5 % (11.5-14.5); RDW Standard Deviation 44.3 fL (36.4-46.3); Red Blood Count 4.71 M/uL (4.20-5.40); White Blood Count 8.54 K/ul (4.8-10.8)
--- NOTE | 2023-07-10 07:57 | Communication Note ---
Date of Service: July 10, 2023 d/ant nitro paste as patient having headaches. Will monitor BP Thank you
[2023-07-10] MEDS: ASPIRIN 81 MG ECTAB PO SCH (09:43)
[2023-07-10] MEDS: TICAGRELOR 90 MG TAB PO SCH ×2 (09:43→21:25)
[2023-07-10] MEDS: ATORVASTATIN 40 MG TAB PO SCH (09:43)
[2023-07-10] MEDS: METOPROLOL TARTRATE 25 MG TAB PO SCH (09:43)
[2023-07-10] MEDS: ONDANSETRON INJ 2 MG/ML 2 ML VIAL IV PRN ×2 (10:10→15:04)
--- NOTE | 2023-07-10 11:54 | Electrocardiogram Report ---
Test Reason : Blood Pressure : / mmHG Vent. Rate : 068 BPM Atrial Rate : 068 BPM P-R Int : 186 ms QRS Dur : 090 ms QT Int : 452 ms P-R-T Axes : 041 -10 080 degrees QTc Int : 480 ms Normal sinus rhythm Normal ECG When compared with ECG of 09-JUL-2023 16:00, No significant change was found Confirmed by Yonathan Schneider ([id number]) on 07/10/2023 11:54:21 AM Referred By: REFERRED SELF Confirmed By:Zaheer Schneider
--- NOTE | 2023-07-10 13:59 | Cardiology Progress Note ---
Date of Service July 10, 2023 Assessment & Plan (1) Acute non-ST elevation myocardial infarction (NSTEMI): (2) Dyslipidemia, goal LDL below 70: (3) HTN (hypertension): Plan 63-year-old female admitted with NSTEMI. Drug-eluting stent implanted to the left circumflex artery without complication 07/09/2023. Discussed importance of continuing dual antiplatelet therapy for 1 year post myocardial infarction and percutaneous intervention. Continue beta-rodri and high intensity statin therapy. Metoprolol tartrate may be transitioned to metoprolol succinate 25 mg daily. Outpatient cardiology follow-up in 2 to 4 weeks. Post procedural activity restrictions listed below. ACTIVITY RECOMMENDATIONS: It is common to feel weak and fatigue for a few days. * Do not drive or operate any motorized equipment for the next three days. * Limit stair usage (2 or 3 trips a day only) for the next three days. * Do not lift anything heavier than 10 pounds for the next three days. * Do not engage in vigorous exercise or any sports for the next five days. * You may shower the day after your procedure, but do not immerse the area for three days. Cleanse the site gently with soap and water. SPECIAL CARE INSTRUCTIONS: * You may replace the pressure dressing or band-aid the morning after the procedure. * After your procedure, it is normal to have a small bruise or small lump at the site. Examine your site daily for any change in the bruise or lump, redness, swelling, drainage or numbness. Notify your doctor if any change. BLEEDING: * If there is a small amount of bleeding at the site, lie down and apply firm pressure with a clean cloth for ten minutes. When the bleeding stops, lie quietly keeping the procedure limb straight for six hours. Notify your doctor as soon as possible. * If the bleeding does not stop after ten minutes or if there is a large amount of bleeding or spurting, call 911 immediately. Continue to lie down and hold firm pressure until help arrives. SKIN IRRITATION: * You may experience some redness and/or swelling in the area where radiation was administered. If any skin irritation occurs, please contact your family physician. FOLLOW UP VISIT: Keep any scheduled doctor appointments. Admission and Anticipated Discharge Date Admission Date: July 09, 2023 Subjective Patient seen examined the bedside. No recurrent chest discomfort. Complains of migraine headache overnight. Telemetry reveals sinus rhythm. No orthopnea, PND, or lower extremity edema. Denies any wrist discomfort. Tolerating current medications. Review of Systems Review of Systems: All systems reviewed & are unremarkable except as noted in Subjective Physical Exam Constitutional: well nourished; no acute distress and not ill appearing Respiratory: normal respiratory effort; no respiratory distress, no labored breathing and no retractions Auscultation: no crackles, no rales, no rhonchi and no wheezes Cardiovascular: Rate/Rhythm: regular rate and regular rhythm Heart Sounds: normal S1 and normal S2; no murmur Vessels: femoral pulses present and radial pulses present; no JVD and no carotid bruit Extremities: no edema Gastrointestinal (Abdomen): Inspection/Auscultation: normal bowel sounds; abdomen not distended Percussion/Palpation: abdomen soft; abdomen nontender, no guarding and abdomen not rigid Neurologic: CN's II-XI intact bilaterally and moves all extremities; no focal motor deficits Results & Data Vital Signs (Past 12 Hours) Vital Signs Temp Pulse Pulse Resp BP Pulse Ox O2 Del Method 07/10/23 11:00 36.7 C 66 18 135/75 97 Room Air 07/10/23 08:00 65 07/10/23 07:09 36.8 C 63 16 124/66 99 Room Air 07/10/23 02:54 36.9 C 70 18 133/77 95 Room Air Laboratory Results Cardiac Enzymes 07/09/23 Range/Units 16:55 Troponin I High Sens 5184.5 H* (0-14) pg/ml CBC 07/10/23 07/10/23 Range/Units 05:40 07:32 WBC Cancelled 8.54 RBC Cancelled 4.71 Hgb Cancelled 14.9 Hct Cancelled 41.9 Plt Count Cancelled 235 Neut # (Auto) Cancelled 7.18 H Lymph # (Auto) Cancelled 0.79 L [place] # (Auto) Cancelled 0.47 Eos # (Auto) Cancelled 0.05 Baso # (Auto) Cancelled 0.01 Comprehensive Metabolic Panel 07/10/23 Range/Units 05:40 Sodium 140 (136-145) mmol/L Potassium 3.9 (3.5-5.1) mmol/L Chloride 106 (98-107) mmol/L Carbon Dioxide 25 (21-32) mmol/L BUN 12 (6-23) mg/dl Creatinine 0.81 (0.6-1.2) mg/dl Glucose 97 (70-99(Fasting)) mg/dl Calcium 8.6 (8.6-10.3) mg/dl Intake and Output 07/09/23 07/10/23 07/10/23 22:59 06:59 14:59 Intake Total 600 / 700 100 / 700 Output Total 1225 / 1225 Balance -625 / -525 100 / -525 Intake: IV 600 / 700 100 / 700 Acetaminophen 1,000 mg In 100 100 / 200 100 / 200 ml @ 400 mls/hr IV Q8H PRN Rx#: [id number] Heparin Sodium/Dextrose 25,000 500 / 500 units In 500 ml @ 1,250 UNITS/ HR 25 mls/hr IV .Q20H TADEO Rx#: [id number] Output: Urine 1225 / 1225 Other: Other Intake Source sips Weight 85.5 kg 86 kg Weight Measurement Method [facility] (3) HTN (hypertension) Hypertension type: primary hypertension Qualified Code(s): I10 - Essential (primary) hypertension
[2023-07-10] MEDS ORDERED: ACETAMINOPHEN 325 MG TAB PO PRN (15:11)
[2023-07-10] MEDS ORDERED: ACETAMINOPHEN 325 MG TAB ONE (15:13)
[2023-07-10] MEDS ORDERED: NARATRIPTAN HCL 2.5 MG PO PRN (16:00)
--- NOTE | 2023-07-10 17:03 | Hospitalist Progress Note ---
Date of Service July 10, 2023 Assessment & Plan (1) NSTEMI (non-ST elevated myocardial infarction): Plan: 63-year-old female with past medical significant for migraines presents with chest pain and elevated blood pressure and found to have non-ST elevated SC. Non-ST elevated SC Chest pain going on and off for last 2 weeks Initial troponin 1225 and up trended with a peak of 5100 Cardiology evaluated. Status post heart cath, MARGUERITE to the left circumflex artery 07/09/2023 Started on aspirin and Brilinta. DC Nitropaste. Continue telemetry monitoring. Likely DC tomorrow. Continue with high intensity statin and metoprolol succin ate. Follow-up with cardiology in 2 to 4 weeks upon discharge. Migraines: Avoid NSAID, can use triptan and Tylenol. DVT prophylaxis: SCDs. Disposition: Telemetry floor Full code Admission and Anticipated Discharge Date Admission Date: July 09, 2023 Subjective Patient was seen and examined at bedside. Patient was lying in bed, on room air, reports having headache in the morning which was fairly better by bedside examination time, reports feeling nauseous and dizzy. Is not confident that she is able to go home today. Denies further chest pain or palpitation. Has poor appetite lacking appetite in the morning due to nausea. Denies shortness of breath. Physical Exam Physical Exam: GENERAL: Alert and oriented x3. NAD, on RA. HEENT: No pallor, no icterus. Pupils equal, round and reactive to light. Oral mucosa moist. NECK: No JVD, no neck masses. HEART: S1 and S2 heard. Regular rate and rhythm. No murmur, no gallop. RESPIRATORY SYSTEM: Normal AP diameter. No accessory muscle use. No wheezing, no crackles. ABDOMEN: Soft, bowel sounds present, nontender, no distention. CENTRAL NERVOUS SYSTEM: No facial droop. Speech is clear. Obeys simple commands. Moves extremities. EXTREMITIES: No edema, no erythema seen. Results & Data Results & Data Vital Signs (Past 12 Hours) Vital Signs Temp Pulse Pulse Resp BP Pulse Ox O2 Del Method 07/10/23 15:46 64 07/10/23 15:00 36.8 C 66 16 134/69 95 Room Air 07/10/23 11:00 36.7 C 66 18 135/75 97 Room Air 07/10/23 08:00 65 07/10/23 07:09 36.8 C 63 16 124/66 99 Room Air
[2023-07-11] MEDS: ATORVASTATIN 40 MG TAB PO SCH (08:35)
[2023-07-11] MEDS: ASPIRIN 81 MG ECTAB PO SCH (08:35)
[2023-07-11] MEDS: TICAGRELOR 90 MG TAB PO SCH (08:36)
[2023-07-11] MEDS ORDERED: METOPROLOL SUCC 25MG EXT REL TAB PO SCH (09:00)
--- NOTE | 2023-07-11 12:18 | Discharge Summary ---
Date of Service July 11, 2023 Admission HPI Per Admitting Provider 63-year-old female with past medical significant for migraines presents with chest pain and elevated blood pressure. Patient states since last 2 weeks she is on and off lower chest and epigastric pain comes on its own. Was feeling fatigue and also dizzy. Yesterday pain was more constant feeling tight in the chest and also tenderness in the epigastric region which prompted her to come to the ER. And there when she came her systolic blood pressure was in 190s and her symptoms and blood pressure improved with nitro. Currently resting comfortably and hemodynamically stable. Denies any shortness of breath. Says she thinks she gets migraine headaches and she takes naratriptan with ibuprofen. Cough. No fevers. No nausea. No sweating. Normal bladder and bowel movements. Denies any blood in the stools or black stools. Denies hematuria. Past medical history as mentioned above Past surgical history. Left knee arthroscopy. Bilateral total. Knee arthroplasty Social history. No smoking. Alcohol social drinking. No drug use. Family history. Mother had coronary disease. Thyroid disease. Father had liver cancer. Sister has cancer. Admission Exam Per Admitting Provider General- Not in distress Head- atraumatic Eyes- PERRL. ENT- oropharynx clear Neck- supple, no JVD. Lungs- clear to auscultation, No wheezing or crackles. Heart- regular rhythm; no murmur, no gallop. Abdomen- normal bowel sounds, soft, nontender, no distension. Extremities- no pretibial edema, no erythema. Neuro- alert, oriented x 3; PERRL, no facial palsy; no dysarthria; moves extremities. Skin- warm & dry Principal Diagnosis NSTEMI Discharge Exam GENERAL: Alert and oriented x3. NAD, on RA. HEENT: No pallor, no icterus. Pupils equal, round and reactive to light. Oral mucosa moist. NECK: No JVD, no neck masses. HEART: S1 and S2 heard. Regular rate and rhythm. No murmur, no gallop. RESPIRATORY SYSTEM: Normal AP diameter. No accessory muscle use. No wheezing, no crackles. ABDOMEN: Soft, bowel sounds present, nontender, no distention. CENTRAL NERVOUS SYSTEM: No facial droop. Speech is clear. Obeys simple commands. Moves extremities. EXTREMITIES: No edema, no erythema seen. Discharge Data Allergies Allergy/AdvReac Type Severity Reaction Status Date / Time Penicillins Allergy Unknown Verified 07/08/23 23:34 Consultations 07/09/23 00:35 ED Decision to Admit Stat 07/09/23 08:00 Consult Cardiology Routine Procedures Performed Operation Date: 07/09/23 11:00 Actual Procedures p Cineradiography w/Routine Exam - Chandan Gonzalez DO Ordered Studies 07/09/23 08:40 CL Cath Imgs for PACS use only Stat Hospital Course (1) NSTEMI (non-ST elevated myocardial infarction): 63-year-old female with past medical significant for migraines presents with chest pain and elevated blood pressure and found to have non-ST elevated GA. She was managed for the following: Non-ST elevated GA Chest pain going on and off for last 2 weeks Initial troponin 1225 and up trended with a peak of 5100 Cardiology evaluated. Status post heart cath, MARGUERITE to the left circumflex artery 07/09/2023 Started on aspirin and Brilinta. DC Nitropaste. Patient is hemodynamically stable and would like to go home. Continue with high intensity statin and metoprolol succinate. Follow-up with cardiology in 2 to 4 weeks upon discharge. Discussed with gynecology on-call, plan to hold Prempro at discharge and patient to call gynecology office as soon as possible upon discharge for alternative. Patient has been made aware regarding Prempro being discontinued and need to follow-up with gynecology office JONATHAN for alternative. Patient voiced unde rstanding. Migraines: Avoid NSAID, can use triptan and Tylenol. DVT prophylaxis: SCDs. Disposition: Telemetry floor Full code Patient is being discharged to home with following instruction at the point of discharge: Follow-up with your primary care physician within a week time and likely you will need labs CBC/CMP/magnesium/phosphorus. You underwent heart cath and stenting while in the hospital, you are being discharged on aspirin and Brilinta. Continue to take your cardiac medications as prescribed. Follow-up with your cardiology in 1 to 2 weeks of discharge. Avoid NSAIDs. Use Tylenol instead for your headache. Your Prempro has been held on discharge, recommend to reach out to your gynecology office as soon as possible upon discharge (as discussed at bedside) for alternative medication. Take your medications as prescribed. Please make sure that you are able to get your medications today by calling your pharmacy before you leave the hospital so that your treatment continuity is not broken. Home Health Attestation I certify that this patient is under my care and that I, or a physicians teacher's assistant working with me, had a face to-face encounter that meets the home health acgf-wo-ntct encounter requirements with this patient. The encounter with the patient was in whole, or in part, for the following medical condition, which is the primary reason for home health care (list medical condition): I certify that, based on my findings, the following services are medically necessary home health services: My clinical findings support the need for the above services because: Further, I certify that my clinical findings support that this patient is homebound (i.e. absences from home require considerable and taxing effort and are for medical reasons or hoahaoism services or infrequently or of short duration when for other reasons) because: Certification for Home Health Services: Based on the above findings, I certify that this patient is confined to the home and needs intermittent retirement care, physical therapy and/or speech therapy or continues to need occupational therapy. The patient is under my care, and I have initiated the establishment of the plan of care. This patient will be followed by a physician who will periodically review the plan of care. Total Time Total Time Spent Total Time Spent (In Minutes): 45 Discharge Plan Discharge Items Patient Disposition: Home - Self-Care Reason For Visit: CHEST PAIN Discharge Diagnosis: NSTEMI Activity: As commented below Non-emergency contact: Primary Care Provider Call non-emergency contact if: you have any medication questions Follow-up/Referrals: Chandan Gonzalez DO [Software Computer Specialist] - (The Cardiology office will contact you for a follow up appointment.) Colin Quezada DO [Primary Care Provider] - (Date & Time 07/15/2023 11:00 AM Provider Tigre Hart MD Department [facility] ) Diet: Heart Healthy Addtl Attending Provider Instructions: Follow-up with your primary care physician within a week time and likely you bella l need labs CBC/CMP/magnesium/phosphorus. You underwent heart cath and stenting while in the hospital, you are being discharged on aspirin and Brilinta. Continue to take your cardiac medications as prescribed. Follow-up with your cardiology in 1 to 2 weeks of discharge. Avoid NSAIDs. Use Tylenol instead for your headache. Your Prempro has been held on discharge, recommend to reach out to your gynecology office as soon as possible upon discharge (as discussed at bedside) for alternative medication. Take your medications as prescribed. Please make sure that you are able to get your medications today by calling your pharmacy before you leave the hospital so that your treatment continuity is not broken. Addtl [employer] Maker Provider Instructions: ACTIVITY RECOMMENDATIONS: It is common to feel weak and fatigue for a few days. * Do not drive or operate any motorized equipment for the next three days. * Limit stair usage (2 or 3 trips a day only) for the next three days. * Do not lift anything heavier than 10 pounds for the next three days. * Do not engage in vigorous exercise or any sports for the next five days. * You may shower the day after your procedure, but do not immerse the area for three days. Cleanse the site gently with soap and water. SPECIAL CARE INSTRUCTIONS: * You may replace the pressure dressing or band-aid the morning after the procedure. * After your procedure, it is normal to have a small bruise or small lump at the site. Examine your site daily for any change in the bruise or lump, redness, swelling, drainage or numbness. Notify your doctor if any change. BLEEDING: * If there is a small amount of bleeding at the site, lie down and apply firm pressure with a clean cloth for ten minutes. When the bleeding stops, lie quietly keeping the procedure limb straight for six hours. Notify your doctor as soon as possible. * If the bleeding does not stop after ten minutes or if there is a large amount of bleeding or spurting, call 911 immediately. Continue to lie down and hold firm pressure until help arrives. SKIN IRRITATION: * You may experience some redness and/or swelling in the area where radiation was administered. If any skin irritation occurs, please contact your family physician. Pending Studies at Discharge: No Stand-Alone Forms: [employer], Smoking Cessation Medications and DC Order Prescriptions: New Brilinta 90 mg Tablet 90 mg PO BID Qty: 60 0RF atorvastatin 40 mg Tablet 80 mg PO QAM Qty: 30 0RF nitroglycerin [Nitrostat] 0.4 mg Tablet, Sublingual 0.4 mg sublingual UD PRN (Reason: chest pain) Qty: 20 0RF metoprolol succinate 25 mg tablet extended release 24 hr 25 mg PO DAILY Qty: 30 0RF aspirin 81 mg Tablet,Delayed Release (Dr/Ec) 81 mg PO QAM Qty: 30 0RF Continued olopatadine 0.1 % drops 1 drp OPB BID naratriptan 2.5 mg tablet 2.5 mg PO DAILY PRN (Reason: Headache) betamethasone valerate 0.12 % foam 1 applic TOPICAL DAILY Rx Instructions: apply to areas on lower extremities clobetasol 0.05 % solution 1 applic TOPICAL BID Rx Instructions: apply to scalp Discontinued celecoxib 200 mg capsule 200 mg PO QAM Prempro 0.3-1.5 mg tablet 1 tab PO DAILY Discharge Orders: Discharge Order (Routine); Ordered 07/11/23 Ordered By: Ruby Tipton Admission Data Admit Date/Time: 07/09/23 03:28 Attending Provider: Ruby Tipton Admit Provider: Dylon Beltre Primary Care Provider: Colin Quezada Other Providers: Dylon Beltre; Chandan Gonzalez
--- NOTE | 2023-07-11 14:09 | Electrocardiogram Report ---
Test Reason : Blood Pressure : / mmHG Vent. Rate : 072 BPM Atrial Rate : 072 BPM P-R Int : 180 ms QRS Dur : 090 ms QT Int : 430 ms P-R-T Axes : 050 032 071 degrees QTc Int : 470 ms Normal sinus rhythm Normal ECG When compared with ECG of 10-JUL-2023 06:12, No significant change was found Confirmed by Yonathan Schneider ([id number]) on 07/11/2023 2:08:58 PM Referred By: REFERRED SELF Confirmed By:Zaheer Schneider
== END 2023-07-11 13:13 | disposition home or self-care (01) | DRG 322 ==
LOC: ED 21:10 → EDINP 07-09 03:28 → SUATTDRO 07-09 03:28 → EDINP 07-09 04:53 → 2S 07-09 14:50